=== PATIENT | female | born 1950 | race Caucasian/White ===

== ENCOUNTER 2016-02-17 06:30 | Inpatient (IN) | payer SELFPAY ==
[~2016-02-17] VITALS: Ht 157.5 cm; Wt 84.6 kg
[2016-02-17 07:02] LABS: BASOPHILS 0.1 % (0.0-2.0); EOSINOPHILS 1.2 % (0-7); HEMATOCRIT 36.2 % (36.0-48.0); HEMOGLOBIN 11.2 g/dL (12-16); IMMATURE GRANULOCYTES 0.3 % (0-5); LYMPHOCYTES 32.8 % (15-50); MCH 27.7 pg (26.0-34.0); MCHC 30.9 g/dL (31.0-37.0); MCV 89.6 fL (80.0-100.0); MEAN PLATELET VOLUME 11.1 fL (7.4-10.4); MONOCYTES 18.1 % (2-11); NEUTROPHILS 47.5 % (40-80); RBC 4.04 10x6/uL (4.00-5.40); RDW 15.7 % (11.5-14.5); WBC 7.3 10x3/uL (4.8-10.8)
[2016-02-17 07:07] LABS: PLATELET COUNT 149 10x3/uL (130-400)
[2016-02-17 07:17] LABS: ALBUMIN 2.9 g/dL (3.4-5.0); BILIRUBIN - TOTAL 0.2 mg/dL (0.2-1.3); CALCIUM 9.2 mg/dL (8.5-10.1); CARBON DIOXIDE 35.8 mmol/L (21.0-32.0); CREATININE - SERUM 0.9 mg/dL (0.6-1.3); POTASSIUM - SERUM 4.8 mmol/L (3.5-5.1); PROTEIN - SERUM 6.7 g/dL (6.4-8.2)
[2016-02-17 08:26] LABS: APPEARANCE CLEAR (CLEAR); BILIRUBIN NEGATIVE (NEGATIVE); COLOR YELLOW (YELLOW); GLUCOSE NEGATIVE (NEGATIVE); KETONE NEGATIVE (NEGATIVE); LEUKOCYTE ESTERASE NEGATIVE (NEGATIVE); NITRITE NEGATIVE (NEGATIVE); PROTEIN NEGATIVE (NEGATIVE); UROBILINOGEN NORMAL (NORMAL)
[2016-02-17 08:38] LABS: UDS - AMPHET NEGATIVE QUAL (NEGATIVE); UDS - BARB NEGATIVE QUAL (NEGATIVE); UDS - BENZO NEGATIVE QUAL (NEGATIVE); UDS - COCAINE NEGATIVE QUAL (NEGATIVE); UDS - METH NEGATIVE QUAL (NEGATIVE); UDS - OPIATE NEGATIVE QUAL (NEGATIVE); UDS - PCP NEGATIVE QUAL (NEGATIVE); UDS - THC NEGATIVE QUAL (NEGATIVE)
--- NOTE | 2016-02-17 12:58 | NUR ---
REC'D PT FROM ER VIA BED. PT SLEEPY BUT EASILY AROUSED. A/O X3. ORIENTED PT TO ROOM. PT REQUEST A DIET COKE AND SOMETHING TO EAT. O2 AT 3LITERS VIA NC. SOB NOTED WITH CRAKLES HEARD BILATERALLY. CALL LIGHT WITH IN REACH. BED ALARM ON. WILL CONT. TO MONITOR.
--- NOTE | 2016-02-17 13:01 | NUR ---
NEW ADMIT FROM ER. SHEYINTED TO ROOM. CALL LIGHT IN REACH. WILL CONT. PLAN OF CARE.
[2016-02-17] MEDS ORDERED: GLUCOPHAGE850 MG PO (13:06)
[2016-02-17] MEDS ORDERED: KLONOPIN1 MG PO (13:07)
[2016-02-17] MEDS ORDERED: ZYPREXA20 MG PO (13:07)
[2016-02-17] MEDS ORDERED: ZYPREXA10 MG PO (13:08)
[2016-02-17] MEDS ORDERED: SYNTHROID150 MCG PO (13:08)
[2016-02-17] MEDS ORDERED: BENZTROPINE ME0.5 MG PO (13:09)
[2016-02-17] MEDS ORDERED: DEPAKOTE500 MG PO (13:09)
[2016-02-17] MEDS ORDERED: VITAMIN D5000 UNIT PO (13:10)
[2016-02-17] MEDS ORDERED: MIRALAX17 GM PO (13:10)
[2016-02-17 13:15] VITALS: BP 110/42; BMI 45.8
[2016-02-17] MEDS ORDERED: FISH OIL 1,0001 CA1 PO (13:15)
[2016-02-17] MEDS ORDERED: COLACE100 MG PO (13:15)
[2016-02-17] MEDS ORDERED: MUCINEX600 MG PO (13:16)
[2016-02-17] MEDS ORDERED: PROVENTIL HFA6.7 GM INH (13:17)
[2016-02-17] MEDS ORDERED: NOVOLOG100 U/M1 (13:27)
--- NOTE | 2016-02-17 13:39 | NUR ---
UNABLE TO PUT PT ON CHIEF SOLUTION ARCHITECT AT THIS TIME. WAS TOLD BY FACILITY TECHNICIAN THAT THEY ARE OUT OF MONITORS AT THE MOMENT.
[2016-02-17 16:28] VITALS: BP 142/57
--- NOTE | 2016-02-17 18:24 | NUR ---
PT SLEEPING. APPEARS COMFORTABLE. RESP EVEN AND UNLABORED. CALL LIGHT WITH IN REACH. BED ALARM ON.
[2016-02-17 20:50] VITALS: BP 160/82
--- NOTE | 2016-02-17 21:51 | NUR ---
PT AWAKE, ALERT, ORIENTED, DENIES ANY NEEDS. CONTINUE TO MONITOR CLOSELY. BED LOW, CALL LIGHT IN REACH, SIDE RAILS X 2, HOB 20 DEGREES, BED ALARM ON.
[2016-02-18 02:50] VITALS: BP 172/70
[2016-02-18 05:22] VITALS: BP 168/79
[2016-02-18 05:42] LABS: BASOPHILS 0.2 % (0.0-2.0); EOSINOPHILS 0.8 % (0-7); HEMATOCRIT 35.9 % (36.0-48.0); HEMOGLOBIN 10.9 g/dL (12-16); IMMATURE GRANULOCYTES 0.3 % (0-5); LYMPHOCYTES 34.9 % (15-50); MCH 27.5 pg (26.0-34.0); MCHC 30.4 g/dL (31.0-37.0); MCV 90.4 fL (80.0-100.0); MEAN PLATELET VOLUME 11.7 fL (7.4-10.4); MONOCYTES 18.1 % (2-11); NEUTROPHILS 45.7 % (40-80); PLATELET COUNT 165 10x3/uL (130-400); RBC 3.97 10x6/uL (4.00-5.40); RDW 15.4 % (11.5-14.5); WBC 6.5 10x3/uL (4.8-10.8)
--- NOTE | 2016-02-18 05:49 | NUR ---
PT PULLED HER IV OUT OF HER LEFT HAND WHILE TRANSFERRING TO BEDSIDE COMMODE. PT HAS REFUSED TO BE RESITED, PT HAS ALSO REFUSED TELEMETRY AND SCD'S. PT IS LETHARGIC, BUT EASILY ROUSABLE TO VERBAL STIMULI. PT AGREES AT THIS TIME TO WEAR HER O2 VIA NC. CONTINUE TO MONITOR CLOSELY. BED LOW, CALL LIGHT IN REACH, SIDE RAILS X 2, BED ALARM ON.
[2016-02-18 06:00] LABS: CALC OSMOLALITY 283 mosm/kg (275-300); CALCIUM 8.8 mg/dL (8.5-10.1); CARBON DIOXIDE 34.7 mmol/L (21.0-32.0); CHLORIDE - SERUM 104 mmol/L (98-107); CREATININE - SERUM 0.8 mg/dL (0.6-1.3); GLUCOSE 103 mg/dL (74-106); POTASSIUM - SERUM 4.4 mmol/L (3.5-5.1); SODIUM 143 mmol/L (136-145); UREA NITROGEN 10 mg/dL (7-18); eGFR NON AFRICAN AMERICAN 76 mL/min (90-120)
--- NOTE | 2016-02-18 07:35 | NUR ---
ASSESSMENT DONE. PT SLEEPING. AROUSES TO VOICE. A/O X3. KEEPING EYES CLOSED WHILE SPEAKING WITH NURSE. REQUEST A DIET COKE. NO IV. PT REFUSING TO HAVE IV RESITED. REFUSING TELEMETRY. STATES SHE WANTS "[facility]ON [facility] TO CALL HER SON, AND [facility] CALL LIGHT WITH IN REACH. WILL CONT. TO MONITOR.
[2016-02-18 08:00] VITALS: BP 138/46
--- NOTE | 2016-02-18 09:26 | NUR ---
RESTS IN BED WITH CALL LIGHT IN REACH. RESP UL ON . WILL MONITOR NEEDS.
[2016-02-18 10:54] VITALS: Ht 157.5 cm; Wt 84.6 kg
[2016-02-18 12:19] VITALS: BP 141/52
--- NOTE | 2016-02-18 12:33 | NUR ---
PT C/O SOB. O2 ON AT 3 LITERS VIA NC. O2 SAT 97%. WHEEZING HEARD BILATERALLY. DR. ENZO BRYANT.
--- NOTE | 2016-02-18 12:41 | NUR ---
PT HAS ABDIAS ORDERED PRN. PAGED RT TO ADM.
[2016-02-18 16:00] VITALS: BP 137/67
--- NOTE | 2016-02-18 18:28 | NUR ---
PT SLEEPING. PT SNORING. NO DISTRESS NOTED. CALL LIGHT WITH IN REACH.
--- NOTE | 2016-02-18 19:48 | NUR ---
INITIAL ROUNDS COMPLETED AT 1920 HRS. PT RESTING WITH EYES CLOSED. RESP EVEN AND REGULAR. SR UP X2, CALL LIGHT WITHIN REACH.
[2016-02-18 20:35] VITALS: BP 133/70
--- NOTE | 2016-02-18 23:09 | NUR ---
PM MEDS GIVEN. PT CURRENTLY RESTING WITH EYES CLOSED. RESP EVEN AND REGULAR. SR UP X2, CALL LIGHT WITHIN REACH AND BED ALARM ON.
--- NOTE | 2016-02-19 00:39 | NUR ---
VSS. ASSISTED TO BSC. VOIDED YELLOW URINE. BACK TO BED WITH ASSIST. WILL CONTINUE TO MONITOR. REFUSES TELEMETRY, IV AND SCD'S. BED ALARM ON.
[2016-02-19 00:45] VITALS: BP 133/64
--- NOTE | 2016-02-19 03:02 | NUR ---
ASSISTED PT TO BSC. VOIDED MODERATE AMOUNT OF YELLOW URINE. ASSISTED BACK TO BED. WILL CONTINUE TO MONITOR. BED ALARM ON.
--- NOTE | 2016-02-19 04:17 | NUR ---
VSS. PT DENIES ANY DISCOMFORT. WILL CONTINUE TO MONITOR. SR UP- X1, CALL LIGHT WITHIN REACH AND BED ALARM ON.
[2016-02-19 04:20] VITALS: BP 118/54
--- NOTE | 2016-02-19 06:36 | NUR ---
VSS THROUGHOUT NIGHT. PT DENIED ANY DISCOMFORT. NEEDS MET; WILL CONTINUE TO MONITOR.
[2016-02-19 07:47] VITALS: BP 129/57
--- NOTE | 2016-02-19 07:54 | NUR ---
0705-AM ROUNDING DONE. PATIENT IS ON 3L PER NC WITH DIMINISHED LUNG BASES. BSC IN USE FOR PATIENT. PATIENT IS IN DEPEND BRIEFS AT PRESENT AND WILL NOT LET ME LOOK AT BOTTOM, WILL TRY AGAIN LATER. BED ALARM IS SET. NO IV ACCESS AND WHEN ASKED, PATIENT WILL NOT LET ME SITE IV. WILL CONTINUE TO MONITOR.
[2016-02-19 08:40] LABS: BASOPHILS 0.1 % (0.0-2.0); EOSINOPHILS 1.5 % (0-7); HEMOGLOBIN 12.2 g/dL (12-16); IMMATURE GRANULOCYTES 0.3 % (0-5); LYMPHOCYTES 43.3 % (15-50); MCH 28.2 pg (26.0-34.0); MCHC 31.3 g/dL (31.0-37.0); MCV 90.3 fL (80.0-100.0); MEAN PLATELET VOLUME 11.2 fL (7.4-10.4); MONOCYTES 11.8 % (2-11); PLATELET COUNT 195 10x3/uL (130-400); RBC 4.32 10x6/uL (4.00-5.40); RDW 14.8 % (11.5-14.5); WBC 6.7 10x3/uL (4.8-10.8)
--- NOTE | 2016-02-19 08:49 | NUR ---
24 G SITED TO RIGHT HAND, MADE SALINE LOCK X 2 STICKS.
[2016-02-19 11:50] VITALS: BP 106/46
--- NOTE | 2016-02-19 14:04 | NUR ---
1357-PATIENT GAVE ME PERMISSION TO CALL HER BROTHER ANNIE ([phone]) TO GET HER SON NABIL'S NUMBER. TRIED TO GIVE NABIL A CALL ([phone]) BUT HIS VOICE MAILBOX HAS NOT BEEN ACTIVATED.
[2016-02-19 15:54] VITALS: BP 132/52
--- NOTE | 2016-02-19 18:29 | NUR ---
DR YOUNGER HERE TO SEE PATIENT.
--- NOTE | 2016-02-19 20:09 | NUR ---
INITIAL ROUNDS COMPETED AT 1910 HRS. PT RESTING WITH EYES CLOSED. RESP EVENA ND REGULAR. ASSESSMENT COMPLETED AT 1999 HRS. O2 3LNC. PT ALERT AND ORINETED TO PERSON AND PLACE AND SITUATION. REORIENTED TO TIME. IV TO R HAND SL. LUNGS DIMINISHED IN BASES BILAT. BED ALRM ON. WILL CONTINUE TO MONITRO. SR UP X2, CALL LIGHT WITHIN REACH.
[2016-02-19 20:10] VITALS: BP 94/45
--- NOTE | 2016-02-19 22:06 | NUR ---
PM MEDS GIVEN. PT CURRENTLY RESTING WITH EYES CLOSED. RESP EVEN AND REGULAR. CALL LIGHT WITHIN REACH AND BED ALARM ON.
--- NOTE | 2016-02-20 00:10 | NUR ---
PT RESTING WITH EYES CLOSED. RESP EVEN AND REGULAR. SR UP X2, CALL LIGHT WITHIN REACH AND BED ALARM ON.
[2016-02-20 00:35] VITALS: BP 91/50
--- NOTE | 2016-02-20 02:09 | NUR ---
PT RESTING WITH EYES CLOSED. RESP EVEN ADN REGULAR. SR UP X2, CALL LIGHT WITHIN REACH.
[2016-02-20 04:28] VITALS: BP 102/50
--- NOTE | 2016-02-20 05:21 | NUR ---
VSS THROUGHOUT NGIHT. PT DENIED ANY DISCOMFORT. NEEDS MET;WILL CONTINUE TO MONITOR.
[2016-02-20 08:00] VITALS: BP 137/50
--- NOTE | 2016-02-20 11:19 | NUR ---
PT IS ALERT. ASSESSMENT DONE PER FLOWSHEET. NO CO PAIN AT THIS TIME. WILL CONTINUE TO MONITOR.
[2016-02-20 12:00] VITALS: BP 144/64
--- NOTE | 2016-02-20 12:34 | NUR ---
PT IS ALERT. NO SS OF DISTRESS AT THIS TIME. WILL CONTINUE TO MONITOR. PT IS EAGERLY AWAITING TO GO HOME AND HAS MULTIPLY ASKED STAFF IF THE DR HAS COME HOME AND SAID SHE COULD GO HOME.
[2016-02-20 14:32] VITALS: BP 116/72
[2016-02-20] MEDS ORDERED: IPRAT-ALBUT 0.5-3 ML UPD (18:19)
[2016-02-20] MEDS ORDERED: MEDROL DOSE PACK4 MG PO (18:22)
[2016-02-20 20:00] VITALS: BP 101/63
--- NOTE | 2016-02-20 20:25 | NUR ---
5917 DAVIS RECEIVED MSG FROM NURSING MAINTENANCE AND REPAIR WORKER TO CALL [facility] KNOCKER MD HAD WRITTEN ORDERS TO DISCHARGE PATIENT BACK TO [facility]. [facility] ADVISED THEY DID NOT HAVE TRANSPORTATION AVAILABLE. [facility]KE KNOCKER FAXED DISCHARGE SUMMARY. CM WILL FAX CLINICAL UPDATE.
--- NOTE | 2016-02-20 20:34 | NUR ---
DAVIS SPOKE WITH BRIANNE AT [facility] REGARDING DISCHARGE. SHE DOES NOT KNOW WHAT TYPE OF BED INTO WHICH THE PATIENT WILL BE ADMITTED. CB IN THE AM. THEY HAVE OBTAINED A RADIO EQUIPMENT INSTALLER FOR TRANSPORTATION. DAVIS SPOKE W/ RADIO SCRIPT WRITER. THE PATIENT AND HER PAPERWORK ARE READY FOR DISCHARGE.
--- NOTE | 2016-02-20 20:55 | NUR ---
[facility] FACILITY AT BEDSIDE TO PICK PT UP. PAPER WORK SIGNED. WHEELED OUT BY FACILITY EMPLOYEES.
== END 2016-02-20 22:18 | DRG 190 ==
LOC: D.ER 06:30 → D.M2 08:31
PROVIDERS: Emergency Medicine; ADMIT Family Medicine
DX: J44.1 Chronic obstructive pulmonary disease with (acute) exacerbation (principal); J18.9 Pneumonia, unspecified organism; J96.00 Acute respiratory failure, unspecified whether with hypoxia or hypercapnia; E11.9 Type 2 diabetes mellitus without complications; F25.9 Schizoaffective disorder, unspecified; K21.9 Gastro-esophageal reflux disease without esophagitis; E78.5 Hyperlipidemia, unspecified; D64.9 Anemia, unspecified; E03.9 Hypothyroidism, unspecified; E55.9 Vitamin D deficiency, unspecified; K59.00 Constipation, unspecified; Z72.0 Tobacco use

== ENCOUNTER → 2016-04-18 19:23 | Outpatient (CLI) | payer SELFPAY ==
[2016-02-18 10:54] VITALS: BMI 34.8
[~2016-04-18 19:23] MED LIST: BENZTROPINE ME0.5 MG PO; COLACE100 MG PO; DEPAKOTE500 MG PO; FISH OIL 1,0001 CA1 PO; GLUCOPHAGE850 MG PO; IPRAT-ALBUT 0.5-3 ML UPD; KLONOPIN1 MG PO; MEDROL DOSE PACK4 MG PO; MIRALAX17 GM PO; MUCINEX600 MG PO; NOVOLOG100 U/M1; PROVENTIL HFA6.7 GM INH; SYNTHROID150 MCG PO; VITAMIN D5000 UNIT PO; ZYPREXA10 MG PO; ZYPREXA20 MG PO
== END | disposition home or self-care (01) ==
LOC: D.SLEEP 19:23
DX: G47.34 Idiopathic sleep related nonobstructive alveolar hypoventilation (principal); R35.1 Nocturia

== ENCOUNTER 2016-06-13 22:50 | Inpatient (IN) | payer MEDICAID ==
[~2016-06-13] VITALS: Ht 157.5 cm; Wt 97.1 kg
[~2016-06-13 22:50] MED LIST changes: -DEPAKOTE ER500 MG PO; -FUROSEMIDE20 MG PO; -NOVOLOG100 U/M1 SC; -POTASSIUM CHLOR8 ME1 PO
[2016-06-14] MEDS ORDERED: FUROSEMIDE20 MG PO (00:52)
[2016-06-14] MEDS ORDERED: POTASSIUM CHLOR8 ME1 PO (00:53)
[2016-06-14] MEDS ORDERED: MUCINEX600 MG PO (01:10)
[2016-06-14] MEDS ORDERED: DEPAKOTE ER500 MG PO (01:14)
[2016-06-14] MEDS ORDERED: BENZTROPINE ME0.5 MG PO (01:15)
[2016-06-14 03:53] VITALS: BMI 39.2
[2016-06-14] MEDS ORDERED: NOVOLOG100 U/M1 SC (04:38)
--- NOTE | 2016-06-14 05:46 | NUR ---
NEW ADMIT FROM EMERGENCY DEPARTMENT TO DOCTOR PAMELA. PATIENT HAD BECOME HYPER VERBAL AT [facility]. YELLING OUT. UNABLE TO REDIRECT AND WAS TRANSPORTED [facility]. UPON ARRIVAL TO HALF-WAY PATIENT WAS CALM AND COOPERATIVE WITH CARE AND ASSESSMENTS. SIGNING CONSENTS FOR ADMISSION TO HALF-WAY. LEFT MESSAGE ON PATIENTS SONS VOICE MAIL. PATIENT CONTINUES TO GET LOUD TALKING AT TIMES BUT REDIRECTS WITH EASE.
[2016-06-14 05:56] LABS: HEMOGLOBIN A1C 7.4 % (4.8-6.0)
[2016-06-14 06:05] LABS: CHOL - HDL RATIO 3.4 ratio (2.3-4.1); LDL-HDL RATIO 2.1 ratio (1.5-3.5); THYROID STIMULATING HORMONE 2.98 uIU/mL (0.36-3.74); VALPROIC ACID (DEPAKOTE) 62.9 ug/mL (50.0-100.0)
[2016-06-14 08:43] VITALS: BP 114/77
[2016-06-14 10:56] VITALS: Ht 157.5 cm; Wt 97.1 kg
--- NOTE | 2016-06-14 12:00 | NUR ---
B) Sitting at dining room table, alert, quiet at this time, however was quite hyper-verbal this morning, compliant with meds, cooperative with staff, delusional, telling stories that exceed the truth. I) Meds admin, music/relaxation therapy provided per director new product. R) Mikayla meds well without s/s adverse reaction. P) Cont plan of care including medications and group therapy, re-direct as necessary.
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
--- NOTE | 2016-06-14 18:35 | NUR ---
Cont to sit in recliner in dayroom, hyperverbal, rambling speech. Stated that Sunday is Mother's day, the and is the . Cont to ramble from topic to topic.
[2016-06-14 19:24] VITALS: BP 135/79
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
[2016-06-15 06:15] LABS: RAPID PLASMA REAGIN Non Reactive (Non Reactive)
[2016-06-15 09:20] LABS: FOLATE (FOLIC ACID) - SERUM 19.3 ng/mL (>3.0)
[2016-06-15 12:35] VITALS: BP 134/71
--- NOTE | 2016-06-15 13:34 | NUR ---
PT CONTINUES TO BE HYPERVERBAL AND MAKING RANDOM DELUSIONAL STATEMENTS. SOME GRANDIOSE STATEMENTS MADE WELL. REORIENTED TO ENVIRONMENT NEEDED. LIMITED INSIGHT INTO REALITY BASED THINKING. EDUCATED ON APPROPRIATE BEHAVIOR AND REALITY DONE. FALL PRECAUTIONS MAINTAINED. MEDICATIONS GIVEN ORDERED. NO AGGRESSION NOTED. WILL CONTINUE TO MONITOR AND CONTINUE WITH PLAN OF CARE.
--- NOTE | 2016-06-15 13:41 | PSY ---
PATIENT NAME:TIMOTHY ROCKWELL MEDICAL RECORD: [id number] : 52 LOCATION:[facility] ADMISSION DATE: 06/13/16 ACCOUNT: [id number] PSYCHIATRIC EVALUATION DATE OF EVALUATION: 06/14/16 Psychiatric Evaluation IDENTIFYING DATA: The patient is 66 years old and she is admitted to the hospital on a voluntary basis. CHIEF COMPLAINT: Psychosis. HISTORY OF PRESENT ILLNESS: The patient lives in a local custodial. She has not been there very long. I am not entirely clear from the circumstances that brought her to this custodial, but the patient clearly has significant behavior problems. She is manic, hyperverbal, hyper-restorationist and delusional. She is accusing the staff there of wanting to steal from her so that they could buy crack cocaine. She is very adamant that everyone at the custodial is taking crack cocaine and she want something done about it. She denies that she would seek to harm herself or others. She denies auditory and visual hallucinations. She denies psychotic symptoms, but she is clearly having active delusional thought processes. PAST MEDICAL HISTORY: Significant for diabetes, hypertension and hypothyroidism. PAST PSYCHIATRIC HISTORY: Significant for long-term mental illness. The patient has a long established and in my view accurate diagnosis of bipolar disorder. She had her first hospitalization while she was still in high school. She has been institutionalized much of her adult life and has spent long periods that both the [facility] and [facility]. In addition to this, she has been in group home residential care at [facility]. She has had many hospitalizations and she says that she has never had psychotic symptoms or attempted to harm herself, but obviously any history she is giving me is of questionable reliability unless independently confirmed. FAMILY HISTORY: Significant for Muhlenberg's chorea which killed one of her sons. She denies a family history of mental illness which is questionably reliable. SOCIAL HISTORY: The patient says she has been and twice. She says she had 2 children, one of whom of Arjun's disease. The other she says is doing well is a middle-aged and retired from the . She denies any history of drug or alcohol abuse. All of this may be correct it is just that given her illness and current condition, just about anything she says is of questionable reliability unless it is independently verified. MENTAL STATUS EXAMINATION: The patient is awake, alert and oriented to person, place and somewhat to time and situation. Her mood is euphoric. Her affect is expansive. Memory, concentration and abstraction abilities are moderately impaired and she denies that she would seek to harm herself or others. She denies auditory and visual hallucinations, but clearly displays delusional thought content and processes. ASSETS: Supportive family members. LIABILITIES: Limited insight. DIAGNOSTIC IMPRESSION: AXIS I: Bipolar disorder, manic. AXIS II: None. AXIS III: Diabetes, hypertension, hypothyroidism. AXIS IV: Moderate stressors. AXIS V: Global assessment of functioning is 35. PLAN: At this time, the patient is admitted to the hospital secondary to manic symptoms associated with chronic mental illness. She will be comprehensively evaluated and treated with both mood stabilizing and memory enhancing medications. Her long-term prognosis is guarded. TRANSINT:[id number] Voice Confirmation ID: [id number] DOCUMENT ID: [id number] ARMIN SANTIAGO MD at 1341 CC: [id number] DICTATION DATE: 06/14/16 1514 COLLECTIONS ATTORNEY: 06/14/16 1808 ADM IN [facility] [address] [place] [address]
--- NOTE | 2016-06-15 16:50 | NUR ---
PATIENT IS SITTING IN THE DAY ROOM. SHE HAS ASKED FOR A SOFT DRINK, BUT SHE IS LIMITED AND Mannie FERMIN EXPLAINED THIS TO HER. PATIENT VERBALIZED UNDERSTANDING.
[2016-06-15 19:24] VITALS: BP 154/79
--- NOTE | 2016-06-15 21:34 | NUR ---
Patient in hallway, doesn't want to go to bed. She is shaking and saying that a "black man is going to come and scalp her, that she heard him talking through the wall. Call the police, 411!" Patient started yelling and shaking. Patient was reoriented that was told she was in the hospital, a secured unit. She just sat and glared at the nurse and started yelling at the security gaurd when he came through to call the police. Patient was eventually redirected to her room and was given .5 mg of Ativan po for anxiety. Continue to monitor,
--- NOTE | 2016-06-16 02:09 | NUR ---
Patient in bathroom, saying "I'm going to call the police, I'm leaving now! I'll make the doctor let me out. You'll see, sister!" Patient is extremely agitated and angry. She came out into the hallway, and was talking very loudly. She sat in a chair next to other patient rooms, when she was asked to move, she said I'm not moving. Patient was reassured that she was safe. However, she kept repeating that she would call the police. She also accused staff of talking about her. Continue to monitor
--- NOTE | 2016-06-16 11:14 | NUR ---
ORIENTED TO PERSON, PLACE, AND TIME. REORIENTED TO REASON WHY SHE WAS AT THE HOSPITAL. PT CONTINUES TO MAKE RANDOM DELUSIONAL STATEMENTS. REDIRECTED NEEDED BACK TO REALITY BASED THINKING. MEDICATIONS GIVEN ORDERED. NO AGGRESSION NOTED. PT CONTINUES TO BE HYPERVERBAL BUT CAN BE REDIRECTED MORE EASILY TODAY. BLE EDEMA NOTED SO PT IS ELEVATING HER FEET AT THIS TIME. DR. REYES AWARE OF EDEMA. FALL PRECAUTIONS MAINTAINED. WILL CONTINUE TO MONITOR AND CONTINUE WITH PLAN OF CARE.
[2016-06-16 11:19] VITALS: BP 137/74
--- NOTE | 2016-06-16 11:53 | PN ---
PATIENT:TIMOTHY ROCKWELL MEDICAL RECORD: [id number] LOCATION:[facility] ADMISSION DATE: 06/13/16 PROGRESS NOTE DATE OF SERVICE: 06/15/2016 SUBJECTIVE: The patient's case was discussed with staff. She has no new complaint. OBJECTIVE: The patient is in good behavioral control with limited insight about her condition. She is tolerating her medications reasonably well. She has limited insight about her situation, but is still very delusional. She tells me she is pleased to announce that the crackhead, who were stealing from her have now been removed from the [facility]. When asked how she knows that, she says, Mart told her it was so. ASSESSMENT: No change in diagnoses. PLAN: The patient is going to be started on lithium as a second mood stabilizer. Depending upon her ability to tolerate this and its clinical effects that may elect to keep her on both Depakote and lithium or just one of the 2 medications. At this point, I would anticipate she is still going to require another week of hospitalization to adequately address these bizarre delusions. TRANSINT:[id number] Voice Confirmation ID: [id number] DOCUMENT ID: [id number] ARMIN SANTIAGO MD at 1153 CC: [id number] DICTATION DATE: 06/15/16 1351 EPITAXIAL REACTOR OPERATOR: 06/15/16 2312 ADM IN [facility] [id number] [place] [address]
--- NOTE | 2016-06-16 14:55 | NUR ---
Nutrition follow-up: Diet: Consistent CHO PO intake ~95% of meals Labs reviewed RDN following.
--- NOTE | 2016-06-16 17:55 | NUR ---
PT CONTINUES TO MAKE RANDOM DELUSIONAL STATEMENTS. PT NOW TALKING OUT LOUD TO UNSEEN OTHERS. PT ALSO TEARFUL AT TIMES CALLING OUT "MAMA". ATTEMPTS AT REDIRECTION HAS CAUSED THE PT TO BECOME AGITATED.
[2016-06-16 19:16] VITALS: BP 141/82
--- NOTE | 2016-06-17 01:11 | NUR ---
B) Recieved francisco in hallway in front of nurses station, alert and oriented X 3, recognized this nurse from when I attended her 10 months ago at her assisted, hyperverbal, delusional AEB talking to God and the president at times, I) Administered perscribed medications, PRN Ativan 0.5 mg PO given for anxiety at 20:00, monitored for safety, R) Medication compliant, friendly and pleasant with staff, P) Continue plan of care, continue to monitor.
--- NOTE | 2016-06-17 07:45 | NUR ---
B) PATIENT TELLING STAFF THAT SHE IS AND GOING TO HAVE A BABY. PATIENT THEN GOES BACK TO BED. PATIENT IS ABLE TO AMBULATE, BUT SHE HAS A WIDE STRADDLE TYPE GAIT AND LOOKS UNSTEADY AT TIMES. I) PROVIDE PRESCRIBED MEDS AND REDIRECT TO REALITY VS NONREALITY. R) PATIENT LAYING IN BED. P) CONTINUE PLAN OF CARE.
--- NOTE | 2016-06-17 08:53 | NUR ---
PATIENT IS LAYING IN BED, DIDN'T EAT MUCH, LAYING BACK IN BED.
--- NOTE | 2016-06-17 10:29 | NUR ---
PATIENT IS SITTING IN THE HALLWAY, ROCKING AGAINST THE WALL, SHE HAS MADE STATEMENTS ABOUT EKTA USING THE TELEPHONE TO CALL THE PRESIDENT OF [employer] AND SHE SAYS EKTA HAS A GUN IN HER PURSE. PATIENT IS TALKING TO HER AUDITORY HALLUCINATIONS. TELLING THEM WHERE SHE IS SITTING.
[2016-06-17 10:45] VITALS: BP 110/65
--- NOTE | 2016-06-17 11:00 | NUR ---
PATIENT WALKED OVER TO MALE PATIENT IN A W/C AND STARTED WHEELING HIM. ASKED HER WHAT SHE WAS DOING. SHE SAID "I'M TAKING GALD[place] FOR A SPIN" EXPLAINED TO HER THAT SHE CAN NOT DO THAT, HE IS HAPPY WHERE IS AND THAT HE IS ABLE TO SELF PROPEL IF HE WANTS TO GO ANYWHERE. SHE LOOKED AT [facility] AND SAID "OK, I WON'T NEVER DO IT AGAIN".
--- NOTE | 2016-06-17 11:17 | PN ---
PATIENT:TIMOTHY ROCKWELL MEDICAL RECORD: [id number] LOCATION:[facility] ADMISSION DATE: 06/13/16 PROGRESS NOTE DATE OF SERVICE: 06/16/2016 SUBJECTIVE: The patient's case was discussed with staff. She has no new complaint. OBJECTIVE: The patient is much calmer and more focused. She still remains delusional, but she is not making any threats. ASSESSMENT: No change in diagnoses. PLAN: Current medicines have been reviewed and will be maintained. Her long-term prognosis is guarded. TRANSINT:[id number] Voice Confirmation ID: [id number] DOCUMENT ID: [id number] ARMIN SANTIAGO MD at 1117 CC: [id number] DICTATION DATE: 06/16/16 1203 PROGRAM RESEARCH SPECIALIST: 06/16/16 2310 ADM IN [facility] [address] [place] [address]
--- NOTE | 2016-06-17 12:30 | NUR ---
PATIENT DID NOT EAT MUCH OF HER LUNCH, TWO BITES MAYBE. SHE HAS BEEN CARRYING AROUND HER BAG AND STANDING BY THE DOOR IF SHE IS NOT IN HER ROOM OR SITTING BY THE DESK, SHE HAS KNOCKED ON THE DOOR, BUT SHE HAS NOT TRIED TO PUSH IT OPEN.
--- NOTE | 2016-06-17 15:30 | NUR ---
PATIENT SITTING IN [address] ROCKING, TALKING AND LISTENING TO HER HALLUCINATIONS. SHE ALSO BEGAN TO MIMIC WHEN THE NURSE WOULD CLEAR HER THROAT OR COUGH.
--- NOTE | 2016-06-17 17:36 | NUR ---
PATIENT REFUSED DINNER, SHE HAS HER BAG PACKED AND SHE IS READY TO GOOUT THE DOOR. SHE HAS KNOCKED ON THE DOOR AND SHE HAS MADE STATEMENTS THAT WE BETTER NOT HURT HER SON. PATIENT IS COMPLIANT TO TAKE HER MEDS.
--- NOTE | 2016-06-17 17:38 | NUR ---
OFFERED PATIENT A SANDWICH, SHE SAID SHE DID NOT WANT ANYTHING.
--- NOTE | 2016-06-17 18:15 | NUR ---
WHEN AUTO TIRE RECAPPER WALKED THROUGH PATIENT SAID "HELP ME, THEY'RE TRYING TO KILL ME."THE AUTO TIRE RECAPPER REASSURED HER THAT "NO, THEY DON'T DO THAT HERE" EXPLAINED THAT WE ARE TRYING TO HELP HER NOT HARM HER. PATIENT IS TRYING THE DOORS NOW. DID PUT UP PRECAUTIONARY SIGNS ON THE OUTSIDE SO OTHERS CAN BE AWARE. PATIENT ASKED "WHERE'S YOUR AND CHILDREN?" TOLD HER THEY WERE AT HOME WAITING ON ME. SHE SAID "WELL, I WOULDN'T BE SO SURE OF THAT", ASKED HER TO SAY AGAIN. SHE SMIRKED AND SAID "I DIDN'T SAY ANYTHING". PATIENT IS ATTENTION SEEKING AND TRYING TO GET A REACTION OF SOME KIND FROM THIS NURSE. SHE ALSO MENTIONED THAT I WAS HERE LAST NIGHT WITH ELENA AND SUGGESTED THAT HE WAS MY BOYFRIEND AND WE WERE HAVING AN AFFAIR. EXPLAINED TO HER THAT "I WAS NOT HERE LAST NIGHT, I WORK DAYS, NOT NIGHTS" AGAIN PATIENT TRYING TO FIND BUTTONS TO PUSH. NO OTHER RESPONSE FROM THIS NURSE. EXPLAINED TO HER THAT THIS MAY BE MY FIRST TIME WITH HER, BUT THAT I WAS AWARE OF THIS KIND OF ENVIRONMENT AND EVERYTHING IS OK.
--- NOTE | 2016-06-17 18:28 | NUR ---
PATIENT JUST CAME TO THE DESK AND SAID "MY ALREADY CALLED YOU AND SAID I CAN GO, YOU'RE TRYING TO KILL ME BOTH OF YOU AND YOUR FATHER AND MOTHER TOO, SHE SAYS YOU THINK YOU'RE GONNA GET $300 MILLION DOLLARS" PATIENT BELIEVES MALE PATIENT AND FEMALE PATIENT ARE MY PARENTS AND ALL OF US ARE TRYING TO KILL HER.
--- NOTE | 2016-06-17 18:33 | NUR ---
PATIENT IS BIZARRE SHE SAYS "THE MAN IS THE TARIK AND THE WOMAN IS BLACK ANDERSON AND YA'LL ARE WORKING FOR [employer]."
[2016-06-17 19:52] VITALS: BP 138/71
--- NOTE | 2016-06-17 21:31 | NUR ---
B) Recieved patient in the hallway alert and oriented X 3, confused and delusional, accussing staff of trying to kill her, wild stories and hyperverbal, attention seeking, I) Administered perscribed medications, monitored for falls and safety, redirected and closely monitored for elopment, PRN Ativan 0.5 mg PO at 20:00 for anxiety R) Medication compliant, restless and asking constant questions and making bizarre statements P) Continue plan of care.
[2016-06-18 07:00] VITALS: BP 100/55
--- NOTE | 2016-06-18 11:04 | NUR ---
Patient in bed, hallucinating. Yelling out, "I love you" to no one. She is terse in speech, flat affect when asked about her needs. Appears angry. Continue to monitor, continue plan of care.
--- NOTE | 2016-06-18 16:39 | NUR ---
Patient's son came to visit her today, Mother's Day. When she found out he was coming, she sat by the window looking for him. He brought his son and visited for 30 minutes. Patient's demeanor has completely changed for the time being. She is polite and pleasant. She said it was the best Mother's Day she's ever had and keeps looking at her card. Patients good behavior has been encouraged. No hallucinations noted. Continue to monitor.
--- NOTE | 2016-06-18 20:05 | NUR ---
RECEIVED IN DAYROO. SITTING IN RECLINING CHAIR WITH STAFF AND PEERS AROUND. HYPERVERBAL AT TIMES. ALERT AND ORIENTED. CALM AND COOPERATIVE WITH CARE AND ASSESSMENTS. REDIRECT NEEDED. CONTINUES TO SIT QUIETLY IN RECLINER. CONTINUE PLAN OF CARE
[2016-06-18 21:00] VITALS: BP 139/54
--- NOTE | 2016-06-19 08:45 | NUR ---
B.) Alert and oriented times three, calm and pleasant. I.) Administer medications and monitor compliance. Monitor for any hallucinations or inappropriate behavior. Redirect and reorient as need. Monitor safety. R.) Compliant with medications, calm and cooperative with care, no yelling out this am, speaks in normal tone of voice and is not hyperverbal at this time. States reason for being here " I kept calling 911 and yelling" No behaivor at this time. P.) Continue plan of care.
[2016-06-19 10:11] VITALS: BP 115/57
--- NOTE | 2016-06-19 15:51 | NUR ---
Has sat in hallway intermittently today, socializing with staff. Pleasant with conversation but is intrusive at times.
--- NOTE | 2016-06-19 16:00 | NUR ---
Sitting in hallway rocking back in forth in chair, hyperverbal talking out loud about random subjects, yelled out "Mart has healed me and Tomer ( another patient on unit.) of sugar diabetes, we are healed!" redirected to lower tone of voice, cooperative with redirection.
--- NOTE | 2016-06-19 18:15 | NUR ---
Sitting in chair rocking back and forth, has bag of clothes in hand and yells out, staring into hallway, delusional " I'm ready to go, Malou if you drop the charges will you shot me!, are you going to shot me?" Does not acknowledge nurse talking to her attempting to refocus to reality. Closes eyes quiets down and continues to rock back and forth with bags in her hand. Elopment precautions in place, staff at desk monitoring patient.
--- NOTE | 2016-06-19 18:29 | NUR ---
Having visual hallucinations, looking down hallway yelling out " Jaylon Sharma listen to your daddy!"
[2016-06-19 19:15] VITALS: BP 181/92
--- NOTE | 2016-06-19 19:50 | NUR ---
RECEIVED IN HALLWAY OUTSIDE OF NURSES STATION. VERY CONFUSED. TALKING ABOUT UNKNOWN THINGS. LAUGHING FOR NO REASON. TALKING TO FAMILY, CALM AND COOPERATIVE WITH CARE AND ASSESSMENT. CONTINUES TO SIT IN DE LUNA. CONTINUE PLAN OF CARE
[2016-06-20 08:01] VITALS: BP 106/62
--- NOTE | 2016-06-20 09:05 | NUR ---
B.) Received this am, alert and oriented to name and place, states reason for being here as " Toan called the police on me." Agitated this am with refusal to get out of bed, refused breakfast and medications. Delusional stating her medication she recieved early this am were laced with cyanide. " Ra put cyanide in my Synthroid." Attempts to refocus patient to reality, by teaching each medication as it was scanned and opened, gladys refused stating " let my bed back down so I can sleep." I.) Redirect for inappropriate behavior, Refocus to reality versus nonreality for any delusions and/or hallucinations. Monitor safety. Elopement precautions in place. R.) Noncompliant with medications, unable to refocus to reality, when lance entered her room she also told her about medication with cyanide in it, and at that time said she would go ahead and take her medications for this am, but when nurse return with medications, she yet refused them. Breakfast tray left at bedside, did not consume food. No hallucinations noted. Patient did lay in bed and had urinary incontinence instead of getting up to bathroom, yelled out she was wet and needed changing, patient normal routine is that she is independent to bathroom, and had been observed doing so this am until this episode. Elopement precautions in place, patient in view of nurses station. Safety maintained. P.) Continue plan of care.
--- NOTE | 2016-06-20 09:09 | NUR ---
Woke up for medication administration, patient states " I'm refusing my medications because Ra laced my medications this morning with cyanide, with cyanide! I'm not taking anything!." refused 0900 medications and laid back down also refusing breakfast.
--- NOTE | 2016-06-20 12:03 | NUR ---
Cooperative with noon medication without any delusions, even thanked nurse for giving it to her.
--- NOTE | 2016-06-20 12:20 | NUR ---
Out of bed sitting up eating lunch, calm and cooperative. No inappropriate behavior.
[2016-06-20 19:30] VITALS: BP 132/73
--- NOTE | 2016-06-20 19:42 | NUR ---
RECEIVED IN DAYROOM. SITTING IN RECLINER. STATED THAT SHE WAS SORRY FOR THINGS SHE SAID TODAY. STATING THAT SHE KNOWS THAT THEY WERE NOT TRUE NOW. NOT YELLING OUT AT THIS TIME. CALM AND COOPERATIVE WITH CARE AND ASSESSMENT. ENCOURAGE TO EXPRESS NEEDS. CONTINUE TO SIT IN CHAIR QUIETLY. NOT YELLING OUT. CONTINUE PLAN OF CARE
[2016-06-21 08:54] VITALS: BP 104/53
--- NOTE | 2016-06-21 12:42 | PN ---
PATIENT:TIMOTHY ROCKWELL MEDICAL RECORD: [id number] LOCATION:[facility] ADMISSION DATE: 06/13/16 PROGRESS NOTE DATE OF SERVICE: 06/19/2016 SUBJECTIVE: The patient's case was discussed with staff. She has no new complaint. OBJECTIVE: The patient denies intent to harm herself or others. She does tolerate her medicines well. She is disorganized and delusional. She is hyperverbal. ASSESSMENT: No change in diagnoses. PLAN: The patient will have her level of both lithium and Depakote checked. If either of those are subtherapeutic, I will make appropriate adjustments. If both are therapeutic, I will change her antipsychotic medication. TRANSINT:[id number] Voice Confirmation ID: [id number] DOCUMENT ID: [id number] ARMIN SANTIAGO MD at 1242 CC: [id number] DICTATION DATE: 06/19/16 1353 PATENT ENGINEER: 06/19/16 2153 ADM IN [id number] [place] [address]
--- NOTE | 2016-06-21 12:42 | PN ---
PATIENT:TIMOTHY ROCKWELL MEDICAL RECORD: [id number] LOCATION:[facility] ADMISSION DATE: 06/13/16 PROGRESS NOTE DATE OF SERVICE: 06/20/2016 SUBJECTIVE: The patient's case was discussed with staff. She has no new complaint. OBJECTIVE: The patient denies intent to harm herself or others. She generally tolerates her medicines well. She is very delusional. She refused to take her medicines this morning because she said that the night nurse had put cyanide into them. She also tells me I must discharge her this afternoon because she is a [place] agent and they are going to bomb [place] that unless she can get out and stop them. ASSESSMENT: No change in diagnoses. PLAN: The patient will be started on Prolixin for its antipsychotic affect. She has taken this medicine before. She said it was not very helpful, but much of which she says is unreliable. I think long-term compliance is going to be an issue with her. In addition to this, the patient has a subtherapeutic lithium level and I have doubled the dose of lithium. TRANSINT:[id number] Voice Confirmation ID: [id number] DOCUMENT ID: [id number] ARMIN SANTIAGO MD at 1242 CC: [id number] DICTATION DATE: 06/20/16 1512 INSPECTOR RADAR AND ELECTRONICS: 06/20/16 2244 ADM IN [address] [id number] [place] [address]
[2016-06-21 19:30] VITALS: BP 130/71
--- NOTE | 2016-06-22 02:04 | NUR ---
B) Recieved sitting in the hallway, alert and oriented X 3, calm and cooperative with care and assessment, no wild stories or outburst this shift, I) Administered perscribed medications, monitored for safety, R) Medication compliant, resting now quietly in bed P) Continue plan of care, continue to monitor.
[2016-06-22 10:27] VITALS: BP 122/75
--- NOTE | 2016-06-22 13:38 | PN ---
PATIENT:TIMOTHY ROCKWELL MEDICAL RECORD: [id number] LOCATION:[facility] ADMISSION DATE: 06/13/16 PROGRESS NOTE DATE OF SERVICE: 06/21/2016 SUBJECTIVE: The patient's case was discussed with staff. She has no new complaint. OBJECTIVE: The patient is in good behavioral control with poor insight about her condition. She tolerates her medicines well. ASSESSMENT: No change in diagnoses. PLAN: The patient is very delusional. She has tolerated the initial dose of Prolixin well. I intend to increase the dose in the near future. TRANSINT:[id number] Voice Confirmation ID: [id number] DOCUMENT ID: [id number] ARMIN SANTIAGO MD at 1338 CC: [id number] DICTATION DATE: 06/21/161956 FARM ASSISTANT: 06/22/16 0114 ADM IN [facility] [address] [place] [address]
--- NOTE | 2016-06-22 14:45 | NUR ---
B) PATIENT IS ATTENTION SEEKING, SHE WET HER PANTS IN THE DAY ROOM, WHEN SHE NORMALLY GOES TO THE RESTROOM UNASSISTED AND KNOWS TO GO, SHE WAS NOT SLEEPING. PATIENT AMBULATES INDEPENDENTLY. I) PROVIDE PRESCRIBED MEDS, REDIRECT TO APPROPRIATE BEHAVIOR NEEDED. R) PATIENT HAS BEEN COMPLIANT WITH MEDS, SHE HAS NOT TALKED TO HER UNSEEN VOICES. P) CONTINUE PLAN OF CARE.
--- NOTE | 2016-06-22 14:52 | NUR ---
Nutrition follow-up: Diet: ADA consistent CHO PO intake ~50% of meals Labs reviewed Wt: 160# +BM RDN following.
[2016-06-22 21:18] VITALS: BP 112/63
--- NOTE | 2016-06-23 02:08 | NUR ---
B) Recieved patient in the day room, alert and oriented X 3, calmer today, no behaviors noted, no talking to unseen people, no dramatic praying to God, I) Administered perscribed medications, monitored for safety and falls, R) Medications compliant, resting quietly P0 Continue plan of care.
[2016-06-23 08:25] VITALS: BP 109/54
--- NOTE | 2016-06-23 12:15 | NUR ---
B) PATIENT IS AWAKE AND ALERT SHE HAS BEEN COMPLIANT TODAY WITH MEDS, SHE HAS NOT BEEN ATTENTION SEEKING YESTERDAY. SHE DID WET HER PANTS EARLY THIS MORNING, BUT SHE SAID SHE WILL NOT DO IT AGAIN. PATIENT AMBULATES INDEPENDENTLY. I) PROVIDE PRESCRIBED MEDS. R) PATIENT IS CALM, NO BIZARRE BEHAVIOR NOTED. P) CONTINUE PLAN OF CARE.
[2016-06-23 19:30] VITALS: BP 125/74
--- NOTE | 2016-06-23 20:10 | NUR ---
RECEIVED SITTING IN HALLWAY IN CHAIR. AWAKE AND ALERT. CALM AND COOPERATIVE WITH CARE AND ASSESSMENT. NO UNUSUAL BEHAVIOR NOTED. ADMINISTER PRESCRIBED MEDS, VSS. MEDICATION COMPLIANT. SITTING QUIETLY IN CHAIR WITH PEERS. CONTINUE PLAN OF CARE AND MONIOTOPR FOR SAFETY AND CHANGES.
--- NOTE | 2016-06-23 23:20 | NUR ---
COMPLAINING OF NERVESDOWN HER BACK HURTING, CAN'T STAY IN BED. ATIVAN 0.5 MG PO GIVEN FOR ANXIETY.
[2016-06-24 07:35] VITALS: BP 141/56
--- NOTE | 2016-06-24 19:23 | NUR ---
PT IS RECEIVED IN [place] IN CHAIR. PT IS ALERT AND ORIENTED X3. PT HAS NOT BEEN INTRUSIVE. SHE HAS BEEN VERY CALM AND PLEASANT THIS SHIFT. NO HALLUCIANTIONS OR DELUSION ARE NOTED OR REPORTED. PT IS COOPERATIVE WITH STAFF AND IS COMPLIANT WITH MED'S AND CARE.NO AGGRESSION NOTED. SAFETY MEASURES ARE IMPLEMENTED. WILL CONTINUE WITH PLAN OF CARE AND CONTINUE TO MONITOR.
[2016-06-24 19:30] VITALS: BP 115/86
--- NOTE | 2016-06-25 03:14 | NUR ---
B) Recieved patient in the day room alert and oriented x 3, no hallucinations noted, no behaviors noted, I) Administered perscribed medications, monitored for falls and safety, redirected as needed, R) Medication compliant, cooperative with staff, P) Continue plan of care, continue to monitor.
--- NOTE | 2016-06-25 14:22 | PN ---
PATIENT:TIMOTHY ROCKWELL MEDICAL RECORD: [id number] LOCATION:[facility] ADMISSION DATE: 06/13/16 PROGRESS NOTE DATE OF SERVICE: 06/23/2016 SUBJECTIVE: No new complaint noted. OBJECTIVE: The patient continues to exhibit brittle and labile moods. She has been incontinent from time to time. She does require some redirection because of intrusiveness. On exam, mood is euthymic. Affect is shallow and somewhat inappropriate. Speech tends to be tangential. Content of thought continues to show some delusional ideation. Sensorium shows no change. ASSESSMENT: No change in diagnosis. PLAN: 1. Maintain present medications. 2. Continue supportive therapy. TRANSINT:[id number] Voice Confirmation ID: [id number] DOCUMENT ID: [id number] TODD WHITING III, MD at 1422 CC: [id number] DICTATION DATE: 06/23/16 1138 MACHINE OPERATOR PICKER: 06/23/16 1909 ADM IN [facility] [address] [place] [address]
--- NOTE | 2016-06-25 18:20 | NUR ---
Patient in dayroom, oriented to self, place and time. She is calm and compliant with medication. Patient is not acting delusional or agressive. Continue to monitor
[2016-06-25 19:30] VITALS: BP 123/74
--- NOTE | 2016-06-25 23:00 | NUR ---
RECEIVED IN DAYROOM. SITTING IN CHAIR WITH PEERS BY HER SIDE. SOCIAL AT TIMES. ALERT AND ORIENTED. NO YELLING OUT. CALM AND COOPERATIVE WITH CARE AND ASSESSMENT. ENCOURAGE TO EXPRESS NEEDS. RESTING EYES CLOSED AT THIS TIME. CONTINUE PLAN OF CARE
--- NOTE | 2016-06-26 14:05 | PN ---
PATIENT:TIMOTHY ROCKWELL MEDICAL RECORD: [id number] LOCATION:[facility] ADMISSION DATE: 06/13/16 PROGRESS NOTE DATE OF SERVICE: 06/22/2016 SUBJECTIVE: The patient's case was discussed with staff. She has no new complaint. OBJECTIVE: The patient is in good behavioral control with limited insight about her condition. She tolerates her medications reasonably well and she is continuing to make delusional statements, but with much less emotional intensity attached to them. I suspect she probably has never been free of delusions or at least has not been free of delusions for a long time. I do not think the end result of treatment is a complete absence of thought disorganization. TRANSINT:[id number] Voice Confirmation ID: [id number] DOCUMENT ID: [id number] ARMIN SANTIAGO MD at 1405 CC: [id number] DICTATION DATE: 06/22/16 1349 DRY MIXER: 06/22/16 2996 ADM IN [id number] [place] [address]
--- NOTE | 2016-06-26 18:06 | NUR ---
Patient in dayroom. Oriented to person, place, time and situation. She is non-delusional and no aggression. She has been resting quietly in dayroom. Patient has been polite but somewhat isolated. Continue to monitor
[2016-06-26] MEDS ORDERED: LIPITOR10 MG PO (20:13)
[2016-06-26] MEDS ORDERED: LITHIUM CARBON300 MG PO (20:16)
[2016-06-26] MEDS ORDERED: PROLIXIN 5 MG TA5 MG PO (20:16)
[2016-06-26] MEDS ORDERED: KLONOPIN0.5 MG PO (20:17)
[2016-06-26] MEDS ORDERED: K-TAB10 MEQ PO (20:18)
--- NOTE | 2016-06-26 20:30 | NUR ---
RECEIVED IN HALLWAY STANDING AT NURSES STATION. TALKING ABOUT HER DISCHARGE TOMORROW. IN GOOD SPRITS. STAES SHE IS GOING TO BED SO SHE CAN GET ALOT OF REST TONIGHT FOR HER DISCHARGE. CALM AND COOPERATIVE WITH CARE AND ASSESSMENTS. ENCOURAGE TO EXPRESS NEEDS. CONTINUE PLAN OF CARE
[2016-06-26 23:31] VITALS: BP 133/76
[2016-06-27 10:14] VITALS: BP 144/72
--- NOTE | 2016-06-27 14:45 | PN ---
PATIENT:TIMOTHY ROCKWELL MEDICAL RECORD: [id number] LOCATION:[facility] ADMISSION DATE: 06/13/16 PROGRESS NOTE DATE OF SERVICE: 06/26/2016 SUBJECTIVE: The patient's case was discussed with staff. She has no new complaint. OBJECTIVE: The patient is in good behavioral control with limited insight about her condition. She tolerates her medicines well. She denies that she would seek to harm herself. ASSESSMENT: No change in diagnoses. PLAN: The patient will be given a higher dose of Prolixin 5 mg at bedtime. I am also going to check her lithium and Depakote level. I would anticipate she can reasonably be transitioned out of the hospital soon if this level of improvement is maintained. TRANSINT:[id number] Voice Confirmation ID: [id number] DOCUMENT ID: [id number] ARMIN SANTIAGO MD at 1445 CC: [id number] DICTATION DATE: 06/26/16 1429 VP PATIENT: 06/27/16 0007 ADM IN [id number] [place] [address]
--- NOTE | 2016-06-27 16:26 | NUR ---
Patient was discharged to [facility] via [facility] staff. Valuables collected from safe.
--- NOTE | 2016-06-28 17:47 | PN ---
PATIENT:TIMOTHY ROCKWELL MEDICAL RECORD: [id number] LOCATION:[facility] ADMISSION DATE: 06/13/16 PROGRESS NOTE DATE OF SERVICE: 06/27/2016 SUBJECTIVE: The patient's case was discussed with staff. She has no new complaint. OBJECTIVE: The patient is in good behavioral control with limited insight about her condition. She does tolerate her medicines well. ASSESSMENT: No change in diagnoses. PLAN: Current medicines and therapies have been reviewed and will be maintained. Long-term prognosis is guarded. TRANSINT:[id number] Voice Confirmation ID: [id number] DOCUMENT ID: [id number] ARMIN SANTIAGO MD at 1747 CC: [id number] DICTATION DATE: 06/27/16 1456 WELL SERVICE FLOORPERSON: 06/28/16 0059 DIS IN 06/27/16 [id number] [place] [address]
== END 2016-06-27 10:15 | DRG 885 ==
LOC: D.PSYCH 22:50
PROVIDERS: ADMIT Psychiatry & Neurology Psychiatry
DX: F30.9 Manic episode, unspecified (principal); J44.9 Chronic obstructive pulmonary disease, unspecified; J20.9 Acute bronchitis, unspecified; E11.9 Type 2 diabetes mellitus without complications; I10 Essential (primary) hypertension; E03.9 Hypothyroidism, unspecified; K59.00 Constipation, unspecified; K21.9 Gastro-esophageal reflux disease without esophagitis; E55.9 Vitamin D deficiency, unspecified; D64.9 Anemia, unspecified; F25.9 Schizoaffective disorder, unspecified; E78.5 Hyperlipidemia, unspecified; Z72.0 Tobacco use

== ENCOUNTER → 2016-06-13 | Emergency (ER) | payer MEDICAID ==
[2016-02-18 10:54] VITALS: BMI 34.8
[~2016-06-13] MED LIST changes: +DEPAKOTE ER500 MG PO; +FUROSEMIDE20 MG PO; +NOVOLOG100 U/M1 SC; +POTASSIUM CHLOR8 ME1 PO
[2016-06-13 19:37] LABS: BASOPHILS 0.2 % (0-2); EOSINOPHILS 1.7 % (0-7); HEMATOCRIT 38.2 % (36.0-48.0); HEMOGLOBIN 11.8 g/dL (12-16); IMMATURE GRANULOCYTES 0.5 % (0-5); LYMPHOCYTES 44.4 % (15-50); MCH 28.3 pg (26.0-34.0); MCHC 30.9 g/dL (31.0-37.0); MCV 91.6 fL (80.0-100.0); MEAN PLATELET VOLUME 10.6 fL (7.4-10.4); MONOCYTES 7.3 % (2-11); NEUTROPHILS 45.9 % (40-80); PLATELET COUNT 218 10x3/uL (130-400); RBC 4.17 10x6/uL (4.00-5.40); RDW 14.4 % (11.5-14.5); WBC 8.1 10x3/uL (4.8-10.8)
[2016-06-13 20:17] LABS: ALBUMIN 3.4 g/dL (3.4-5.0); ANION GAP 6.9 mmol/L (8-16); BILIRUBIN - TOTAL 0.13 mg/dL (0.2-1.3); CALCIUM 9.7 mg/dL (8.5-10.1); CARBON DIOXIDE 37.1 mmol/L (21.0-32.0); CREATININE - SERUM 0.9 mg/dL (0.6-1.3); PROTEIN - SERUM 7.3 g/dL (6.4-8.2)
[2016-06-13 20:52] LABS: APPEARANCE CLEAR (CLEAR); BILIRUBIN NEGATIVE (NEGATIVE); COLOR YELLOW (YELLOW); GLUCOSE NEGATIVE (NEGATIVE); KETONE NEGATIVE (NEGATIVE); LEUKOCYTE ESTERASE NEGATIVE (NEGATIVE); NITRITE NEGATIVE (NEGATIVE); PROTEIN NEGATIVE (NEGATIVE); UROBILINOGEN NORMAL (NORMAL)
[2016-06-13 21:06] LABS: UDS - AMPHET NEGATIVE QUAL (NEGATIVE); UDS - BARB NEGATIVE QUAL (NEGATIVE); UDS - BENZO NEGATIVE QUAL (NEGATIVE); UDS - COCAINE NEGATIVE QUAL (NEGATIVE); UDS - METH NEGATIVE QUAL (NEGATIVE); UDS - OPIATE NEGATIVE QUAL (NEGATIVE); UDS - PCP NEGATIVE QUAL (NEGATIVE); UDS - THC NEGATIVE QUAL (NEGATIVE)
== END | disposition home or self-care (01) ==
LOC: D.ER 17:30
PROVIDERS: Physician Assistant
DX: F29 Unspecified psychosis not due to a substance or known physiological condition (principal); F22 Delusional disorders; F31.89 Other bipolar disorder; J44.9 Chronic obstructive pulmonary disease, unspecified; E11.9 Type 2 diabetes mellitus without complications; Z79.4 Long term (current) use of insulin; F17.200 Nicotine dependence, unspecified, uncomplicated

== ENCOUNTER 2017-12-26 22:32 | Emergency (ER) | payer MEDICAID ==
[~2017-12-26] VITALS: Ht 157.5 cm; Wt 90.9 kg
[~2017-12-26 22:32] MED LIST changes: +DEPAKOTE ER500 MG PO; +FUROSEMIDE20 MG PO; +K-TAB10 MEQ PO; +KLONOPIN0.5 MG PO; +LIPITOR10 MG PO; +LITHIUM CARBON300 MG PO; +NOVOLOG100 U/M1 SC; +POTASSIUM CHLOR8 ME1 PO; +PROLIXIN 5 MG TA5 MG PO
[2017-12-26 22:35] VITALS: Ht 157.5 cm; Wt 90.9 kg
[2017-12-26] MEDS ORDERED: SYNTHROID125 MCG PO (22:37)
[2017-12-26] MEDS ORDERED: KLOR-CON 1010 MEQ PO (22:37)
[2017-12-26] MEDS ORDERED: LIPITOR40 MG (22:38)
[2017-12-27 02:12] VITALS: BP 138/79
== END 2017-12-27 02:12 ==
LOC: D.ER 22:32
DX: S00.93XA Contusion of unspecified part of head, initial encounter (principal); W18.30XA Fall on same level, unspecified, initial encounter; Y93.89 Activity, other specified; Y92.129 Unspecified place in nursing home as the place of occurrence of the external cause; S16.1XXA Strain of muscle, fascia and tendon at neck level, initial encounter; M54.2 Cervicalgia; Z86.59 Personal history of other mental and behavioral disorders; E11.9 Type 2 diabetes mellitus without complications; J44.9 Chronic obstructive pulmonary disease, unspecified

== ENCOUNTER 2020-05-25 09:50 | Inpatient (IN) | payer MEDICARE ==
[~2020-05-25] VITALS: Ht 157.5 cm; Wt 96.0 kg
--- NOTE | ~2020-05-25 | DS ---
PATIENT:TIMOTHY ROCKWELL :52 MEDICAL RECORD: [id number] DISCHARGE SUMMARY ADMISSION DATE: 05/25/20 DISCHARGE DATE: 06/29/20 IDENTIFYING DATA: The patient is 70 years old and she was admitted to the hospital on a voluntary basis. CHIEF COMPLAINT: Agitation. HISTORY OF PRESENT ILLNESS: The patient has a longstanding history of bipolar disorder. She lives in a local long term. She is reportedly manic, agitated and delusional. She is also out of control. She is sleepy and difficult to arouse on admission. HOSPITAL COURSE: The patient was admitted to the hospital and fully evaluated from both a medical, psychological, and social standpoint. The patient was severely agitated, manic, and disruptive. Required numerous medication trials to bring her behaviors under control. She was subsequently transitioned out of the hospital. DISCHARGE DIAGNOSES: AXIS I: Bipolar disorder, mixed state. AXIS II: None. AXIS III: Diabetes, hypertension, hypothyroidism. AXIS IV: Moderate stressors. AXIS V: Global assessment of functioning is 40. PLAN: At the time of discharge, the patient was in good behavioral control with limited insight about her condition. She tolerates her medicines well. Her long-term prognosis is guarded. TRANSINT:[id number] Voice Confirmation ID: [id number] DOCUMENT ID: [id number] ARMIN SANTIAGO MD CC: [id number] DICTATION DATE: 06/29/20 163 PARK MAINTAINER: 06/30/201815 DIS IN 06/29/20 [facility] [address] [place] [address]
[~2020-05-25 09:50] MED LIST changes: +KLOR-CON 1010 MEQ PO; +LIPITOR40 MG; +SYNTHROID125 MCG PO
--- NOTE | 2020-05-25 11:00 | NUR ---
PT ADMITTED TO [facility] FOR HALLUCINATIONS, REFUSING MEDICATIONS, AND BELIEVES HER SON WAS KILLED. PT HAS HISTORY OF BIPOLAR PER REPORT AND DETENTION RECORDS. PT GAVE VERBAL CONSENT TO TREAT. WITNESSED BY CONNOR BURTON AT THIS TIME. PT IS A FULL CODE. PT REC'D COVID VACCINE 1ST DOSE ON 02/03/20 AND 2ND DOSE ON 03/02/20. PT DID HAVE COVID SEPTEMBER 08, 2019 PER DETENTION REPORT. COVID SWAB COLLECTED UPON ADMISSION. PT PLACED ON DROPLET PRECAUTION FOR PENDING COVID RESULTS AT THIS TIME. WILL CPOC.
[2020-05-25] MEDS ORDERED: ADVAIR 250-501 EAC1 INH (13:36)
[2020-05-25] MEDS ORDERED: BENZTROPINE MESY1 MG PO (13:37)
[2020-05-25] MEDS ORDERED: DEPAKOTE250 MG PO (13:41)
[2020-05-25] MEDS ORDERED: DEPAKOTE500 MG (13:43)
[2020-05-25] MEDS ORDERED: COLACE100 MG PO (13:43)
[2020-05-25] MEDS ORDERED: FERROUS FUMARA324 MG PO (13:44)
[2020-05-25] MEDS ORDERED: FISH OIL 1,0001 CA1 PO (13:45)
[2020-05-25] MEDS ORDERED: FLUPHENAZINE H2.5 MG PO (13:49)
[2020-05-25] MEDS ORDERED: GLIPIZIDE10 MG PO (13:50)
[2020-05-25] MEDS ORDERED: ZOFRAN4 MG PO (13:52)
[2020-05-25] MEDS ORDERED: ZYPREXA10 MG PO (13:55)
[2020-05-25] MEDS ORDERED: PROPRANOLOL HCL10 MG PO (13:55)
[2020-05-25] MEDS ORDERED: ALBUTEROL SULF8.5 GM INH (13:58)
[2020-05-25] MEDS ORDERED: SYNTHROID150 MCG PO (13:59)
[2020-05-25] MEDS ORDERED: ASCORBIC ACID500 MG PO (14:01)
[2020-05-25] MEDS ORDERED: ACETAMINOPHEN325 MG PO (14:01)
[2020-05-25] MEDS ORDERED: VITAMIN D325 MC1 PO (14:02)
[2020-05-25] MEDS ORDERED: NOVOLOG100 UNIT/1 SC (14:03)
[2020-05-25] MEDS ORDERED: KLONOPIN0.5 MG PO (14:04)
[2020-05-25] MEDS ORDERED: MUCINEX600 MG PO (14:04)
[2020-05-25] MEDS ORDERED: FUROSEMIDE20 MG PO (14:05)
[2020-05-25] MEDS ORDERED: LIPITOR40 MG PO (14:08)
[2020-05-25] MEDS ORDERED: MELATONIN 3 MG1 TAB PO (14:11)
[2020-05-25] MEDS ORDERED: MIRALAX17 GM PO (14:13)
[2020-05-25 17:51] LABS: BASOPHILS 0.1 % (0-2); EOSINOPHILS 1.6 % (0-7); HEMATOCRIT 34.5 % (36.0-48.0); HEMOGLOBIN 11.5 g/dL (12-16); IMMATURE GRANULOCYTES 0.6 % (0-5); LYMPHOCYTE ABS# 2.55 10x3/uL (1.18-3.74); LYMPHOCYTES 37.3 % (15-50); MCH 29.9 pg (26.0-34.0); MCHC 33.3 g/dL (31.0-37.0); MCV 89.6 fL (80.0-100.0); MEAN PLATELET VOLUME 11.4 fL (7.4-10.4); MONOCYTES 10.1 % (2-11); NEUTROPHIL ABS# 3.44 10x3/uL (1.56-6.13); NEUTROPHILS 50.3 % (40-80); PLATELET COUNT 250 10x3/uL (130-400); RBC 3.85 10x6/uL (4.00-5.40); RDW 12.7 % (11.5-14.5); WBC 6.8 10x3/uL (4.8-10.8)
[2020-05-25 18:32] LABS: ALBUMIN 3.3 g/dL (3.4-5.0); ANION GAP 10.3 mmol/L (8-16); BILIRUBIN - TOTAL 0.23 mg/dL (0.2-1.3); CALCIUM 9.7 mg/dL (8.5-10.1); CARBON DIOXIDE 30.2 mmol/L (21.0-32.0); CHOL - HDL RATIO 2.6 ratio (2.3-4.1); CREATININE - SERUM 1.5 mg/dL (0.6-1.3); LDL-HDL RATIO 1.2 ratio (1.5-3.5); POTASSIUM - SERUM 4.5 mmol/L (3.5-5.1); PROTEIN - SERUM 6.7 g/dL (6.4-8.2); THYROID STIMULATING HORMONE 0.05 uIU/mL (0.36-3.74); VALPROIC ACID (DEPAKOTE) 60.6 ug/mL (50.0-100.0)
--- NOTE | 2020-05-25 21:48 | NUR ---
RECEIVED IN BEDROOM. RESTING QUIETLY IN BED WITH EYES OPEN. CONFUSED. CALM AND COOPERATIVE WITH ADMIT ASSESSMENT AND CARE. NO SIGNS OF HALLUCINATIONS OR DELUSIONAL STATEMENTS. REDIRECT AND REORIENT NEEDED. CONTINUE PLAN OF CARE.
[2020-05-25 22:26] VITALS: BP 136/49
[2020-05-25 23:22] LABS: BILIRUBIN NEGATIVE (NEGATIVE); KETONE NEGATIVE (NEGATIVE); NITRITE NEGATIVE (NEGATIVE); UROBILINOGEN NORMAL mg/dL (< 2)
[2020-05-26 02:22] VITALS: BP 122/58; BMI 38.9
[2020-05-26 07:15] LABS: RAPID PLASMA REAGIN Non Reactive (Non Reactive)
[2020-05-26 08:00] VITALS: BP 121/48
[2020-05-26 14:05] VITALS: Ht 157.5 cm; Wt 96.0 kg
--- NOTE | 2020-05-26 15:37 | NUR ---
Rec'd patient lying in bed.She is A/O to person.She is med compliant and took her meds whole. She is on droplet precautions awaiting her covid admission results. She has been very quiet and has taken naps and layed quietly on her bed. She does little ADLs for herself and wants the staff to do all for her.She has displayed no outward hallucinations, yelling out, or paranoia.She has reddness tee. underneath her breast that she has rec'd an order for Nystatin powder. She is directable and redirectable. Socialization was completed today awaiting her lab results.
--- NOTE | 2020-05-26 16:02 | PSY ---
PATIENT NAME:TIMOTHY ROCKWELL MEDICAL RECORD: [id number] : 52 LOCATION:[facility] ADMISSION DATE: 05/25/20 ACCOUNT: [id number] PSYCHIATRIC EVALUATION DATE OF EVALUATION: 05/25/20 IDENTIFYING DATA: The patient is 70 years old and she is admitted to the hospital on a voluntary basis. CHIEF COMPLAINT: Agitation. HISTORY OF PRESENT ILLNESS: The patient has a longstanding bipolar disorder. She currently lives in a local care home. She is reportedly manic, agitated, delusional, and out of control there. She is sleepy, although I am not sure why, she probably has not been awake for very long, but for some reason, I am having trouble arousing her and keeping her awake. She is minimally interviewable and I would view the information that she is giving me as highly questionable. She does live in a local care home. She has been there for about 5 years. I am not sure why she lives in a care home, but again she has been manic and agitated there and they view her as a danger and cannot handle her. PAST MEDICAL HISTORY: Significant for diabetes, hypertension, and hypothyroidism. PAST PSYCHIATRIC HISTORY: Significant for lifelong chronic mental illness. The patient has a long established diagnosis of bipolar disorder and was first hospitalized when she was in high school. She has been institutionalized through much of her adult life and has been a long-term resident of the [facility]. She has had numerous hospitalizations. FAMILY HISTORY: Significant for Fajardo's chorea which killed one of her sons. She states that there is no family history of mental illness, which is improbable, that is what she states. SOCIAL HISTORY: The patient has been and twice. She has 2 children, one of whom of Fajardo's disease. The other child is middle aged and retired from the . She denies a history of drug or alcohol abuse. MENTAL STATUS EXAMINATION: The patient is awake, alert and oriented to person and somewhat to place, time and situation. Her mood is flat. Her affect is constricted. Memory, concentration, and abstraction abilities are impaired. She denies any intent to harm herself or others as well as psychotic symptoms. ASSESSMENT: AXIS I: Bipolar disorder, mixed state. AXIS II: None. AXIS III: Diabetes, hypertension, hypothyroidism. AXIS IV: Moderate stressors. AXIS V: Global assessment of functioning is 35. PLAN: At this time, the patient is admitted to the hospital for comprehensive medical, psychological, and social evaluation. She will be treated with both mood stabilizing and memory enhancing medications. Her long-term prognosis is guarded. TRANSINT:[id number] Voice Confirmation ID: [id number] DOCUMENT ID: [id number] ARMIN SANTIAGO MD at 1602 CC: [id number] DICTATION DATE: 05/25/20 1631 CLERICAL WAREHOUSEMAN: 05/25/20 1709 ADM IN [facility] [address] [place] [id number]
[2020-05-26 20:00] VITALS: BP 148/74
--- NOTE | 2020-05-26 20:39 | NUR ---
RECEIVED PATIENT IN THE HALLWAY (MASK ON). SHE IS ORIENTED TO PERSON, TIME BUT NOT PLACE OR SITUATION, SHE SAID THAT MARY JANE SENT HER HERE FROM [facility] BECAUSE SHE GOT MAD BECAUSE BLACK PEOPLE WERE GETTING HER REMOTE CONTROL FOR HER T.V. AND SHE DIDN'T WANT THEM TO. SHE HAS A VERY FLAT AFFECT, COMPLIANT WITH MEDS HERE. WILL FOLLOW POC
[2020-05-27 08:55] VITALS: BP 132/73
--- NOTE | 2020-05-27 09:29 | NUR ---
LAB CALLED AND PT SARS-19 RESULTS WERE NEGATIVE.
--- NOTE | 2020-05-27 16:09 | PN ---
PATIENT:TIMOTHY ROCKWELL MEDICAL RECORD: [id number] LOCATION:[facility] ADMISSION DATE: 05/25/20 PROGRESS NOTE DATE OF SERVICE: 05/26/2020 SUBJECTIVE: The patient's case was discussed with staff. She has no new complaint. OBJECTIVE: The patient is in good behavioral control. She has a significant amount of mood lability, but is generally cooperative. ASSESSMENT: 1. Bipolar disorder. 2. Dementia. PLAN: The patient's current medications have been reviewed. I am going to increase the dose of her Depakote and will discontinue the Prolixin and Cogentin. TRANSINT:[id number] Voice Confirmation ID: [id number] DOCUMENT ID: [id number] ARMIN SANTIAGO MD at 1609 CC: [id number] DICTATION DATE: 05/26/20 165 CERTIFIED SKI PATROLLER: 05/26/20 2333 ADM IN [address] [id number] [place] [address]
--- NOTE | 2020-05-27 18:20 | NUR ---
PT SITTING IN CHAIR. CALM AND COOPERATIVE. CONFUSION NOTED. REDIRECT AND REORIENT NEEDED. SARS-19 NEGAVTIVE. BIZARRE BEHAVIOR NOTED. COMPLIANT WITH MEDS, VITALS AND ASSESSMENTS. AMBULATES. REDIRECT NEEDED. PT DID NOT UNDERSTAND IT WAS HER ROOM AND WAS AGITATED WITH REDIRECTION. WILL CONT PLAN OF CARE.
[2020-05-27 20:00] VITALS: BP 142/93
--- NOTE | 2020-05-28 01:44 | NUR ---
B) Patient is alert and oriented to self, constantly worried, bizarre behavior at times, I) Administered scheduled medications as ordered, redirected as needed, monitored for safety, R) Medication compliant, sleeping now quietly in her bed, P) Continue plan of care.
[2020-05-28 10:00] VITALS: BP 143/59
--- NOTE | 2020-05-28 17:34 | NUR ---
pt sitting in dayarea at this time. pt is calm, cooperative with bizarre behaviors noted at times. withdrawn. confusion noted. redirect and reorient as needed. alert to self only. compliant with meds, vitals and assessments. no paranoid behaviors or hallucinations noted. ambulates. requires some assistance with adls. self toilets. bed alarm in place. will cont plan of care.
[2020-05-28 20:00] VITALS: BP 131/72
--- NOTE | 2020-05-28 20:42 | NUR ---
PT IS ALERT AND ORIENTED X4. RELATES SHE IS IN THE HOSPITAL BECAUSE THE AMBASSADOR OF THE [facility] PUT HER HERE. SHE IS RECEIVED IN THE HALLWAY SOCIALIZING WITH PEERS. SHE CAN BE DEMANDING AT TIMES. COMPLIANT WITH ALL MEDICATIONS. OBSERVED SHAKING ALL OVER. DENIES BEING COLD. EASY TO REDIRECT. PT STATED" OH DADDY I FORGAVE YOU FOR WHAT YOU DID BEFORE YOU DID IT." RELATES THAT SHE WOULDNT HURT ANYBODY ANA CONWAY KNOWS IT. MONITOR FOR SAFETY.
[2020-05-29 08:45] VITALS: BP 129/73
--- NOTE | 2020-05-29 18:27 | NUR ---
RECEIVED SITTING UP IN CHAIR THIS AM.IS AMBULATORY.ORIENTED TO SELF,PLACE AND TIME BUT SOME CONFUSION IS PRESENT.CALLS THIS NURSE DAGMAR.COMPLIANT WITH STAFF AND MEDS.WILL CONTINUE WITH CURRENT PLAN OF CARE,MONITOR FOR CHANGES AND SAFETY.
[2020-05-29 20:00] VITALS: BP 108/68
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
[2020-05-30 08:22] VITALS: BP 134/57
--- NOTE | 2020-05-30 15:06 | NUR ---
RECEIVED THIS AM IN BED.ORIENTED X 4.IS AMBULATORY.COMPLIANT WITH STAFF AND MEDS.YESTERDAY THOUGHT THIS NURSE WAS HER MOMMY BUT TODAY SHE HAS NOT EXPRESSED THAT BELIEF.WILL CONTINUE WITH CURRENT PLAN OF CARE,MONITOR FOR SAFETY AND CHANGES.
--- NOTE | 2020-05-30 16:02 | NUR ---
Rec'd patient up in bed this am. She is A/O times [address], and situation. She is med compliant and takes her meds whole. She is often demanding, has childlike behaviors, and attempts to manipulate staff to her being dependant on their care. She has demonstrated no hallucinations today. She is redirectable.
--- NOTE | 2020-05-30 20:08 | NUR ---
RECEIVED IN HALLWAY. SITTING QUIETLY IN A CHAIR. CALM AND COOPERATIVE WITH CARE AND ASSESSMENT. NO SIGNS OF HALLUCINATIONS OR PARANOIA. REDIRECT AND REORIENT NEEDED. CONTINUES TO SIT QUIETLY IN HALLWAY OUTSIDE OF NURSES STATION.
[2020-05-30 21:20] VITALS: BP 116/73
[2020-05-31 08:00] VITALS: BP 118/60
--- NOTE | 2020-05-31 08:54 | PN ---
PATIENT:TIMOTHY ROCKWELL MEDICAL RECORD: [id number] LOCATION:[facility] ADMISSION DATE: 05/25/20 PROGRESS NOTE DATE OF SERVICE: 05/27/2020 SUBJECTIVE: The patient's case was discussed with staff. She has no new complaint. OBJECTIVE: The patient is impaired cognitively, but her mood lability and bizarre, disorganized, psychotic behavior have improved. She is denying any thoughts of harming herself or others. ASSESSMENT: 1. Bipolar disorder. 2. Dementia. PLAN: Current medicines have been reviewed and will be maintained. Her long-term prognosis is guarded. TRANSINT:[id number] Voice Confirmation ID: [id number] DOCUMENT ID: [id number] ARMIN SANTIAGO MD at 0854 CC: [id number] DICTATION DATE: 05/27/20 170 RESPIRATORY CARE INSTRUCTOR: 05/27/208 ADM IN [facility] [address] [place] [address]
--- NOTE | 2020-05-31 10:52 | NUR ---
Nutrition Follow-up: Diet: Diabetic PO intake: varied 0-100%, ~49% average x last 9 meals Last BM: 05/31/20 Wt: 204# (05/30/20); Admit Wt: 212# (05/25/20) Meds noted: senokot, SSI, lasix, glipizide, miralax Labs noted: POC Glu 133(H) Noted -8# wt change. Patient with marginal PO intake so some weight change may be accurate. However, noted several other patients on residential with weight loss. Question accuracy of scales vs. fluid status. Also noted patient with edema per MD notes. Will continue to monitor wt trend and PO intake. Recommend continue current diet. RD will follow-up 06/02/20.
--- NOTE | 2020-05-31 17:36 | NUR ---
ALERT, CALM, COOPERATIVE, POOR COGNITION, CHILD-LIKE. NO HALLUCINATIONS OR YELLING OUT NOTED. MEDS ADMIN PER ORDERS WITH COMPLETE MED COMPLIANCE NOTED. APPETITE GOOD, FEEDS SELF. NO ADVERSE REACTION TO MEDICATIONS.
--- NOTE | 2020-05-31 20:45 | NUR ---
RECEIVED IN BEDROOM. EXITS BED WITHOUT ASSIST. DEMANDING AT TIMES. CALM AND COOPERATIVE WITH CARE AND ASSESSMENT. NO SIGNS OF HALLUCINATIONS OR PARANOIA. REDIRECT AND REORIENT NEEDED. MHT AT BEDSIDE TAKING VITALS AT THIS TIME. CONTINUE PLAN OF CARE.
[2020-05-31 21:42] VITALS: BP 101/53
[2020-06-01 14:19] VITALS: BP 121/44
--- NOTE | 2020-06-01 14:19 | PN ---
PATIENT:TIMOTHY ROCKWELL MEDICAL RECORD: [id number] LOCATION:[facility] ADMISSION DATE: 05/25/20 PROGRESS NOTE DATE OF SERVICE: 05/31/2020 SUBJECTIVE: The patient's case was discussed with staff. She has no new complaint. OBJECTIVE: The patient's mood lability has significantly improved. She denies that she would seek to harm herself. ASSESSMENT: Dementia. PLAN: I anticipate the patient can be transitioned of the hospital soon. TRANSINT:[id number] Voice Confirmation ID: [id number] DOCUMENT ID: [id number] ARMIN SANTIAGO MD at 1419 CC: [id number] DICTATION DATE: 05/31/20 1618 LICENSED PLUMBER: 05/31/20 2302 ADM IN [place] [id number] [place] [id number]
--- NOTE | 2020-06-01 17:04 | NUR ---
PT SITTING AT TABLE AT THIS TIME. PT IS CONFUSED. ALERT TO SELF ONLY. CALM AND COOPERATIVE WITH STAFF, MEDS AND VITALS. PT CAN BE DEMANDING AT TIMES. REDIRECT AND REORIENT NEEDED. CAN MAKE NEEDS KNOWN. PT CAN BE WITHDRAWN AT TIMES. TREMORS NOTED. NO AGGRESSION, HALLUCINATIONS NOTED. BED ALARM IN PLACE AND ACTIVE. WILL CONT PLAN OF CARE.
--- NOTE | 2020-06-01 17:20 | NUR ---
PT PACINH HALLWAY AT THIS TIME. PT YELLING, CUSSING STAFF, AND EXIT SEEKING. PT IS DELUSIONAL AT THIS TIME. PT STATING " SHE IS MAKING BOMBS AT THE WHITE HOUSE." PT SCREAMING OUT I WANT ANA CONWAY AND THE POLICE. UNABLE TO REDIRECT AT THIS TIME. ATIVAN 0.5MG IM GIVEN PER PRN ORDER. PT TALKING TO UNSEEN OTHERS AT THIS TIME. WILL CPOC.
--- NOTE | 2020-06-01 18:40 | NUR ---
NURSE CALLED DR. SANTIAGO TO REPORT INCREASE IN BEHAVIORS AFTER PRN MEDICATION ADMINISTRATION. PT CONTS TO YESSY WE ARE COMMUNIST, SHE WAS COVERED IN THE BLOOD OF ANA, EXIT SEEKING, REFUSED TO EAT, RESISTIVE TO ALL CARE. NEW ORDERS FOR: GEODON 20 MG IM Q 4 HR, ATIVAN 1 MG PO Q 1 HR, ATIVAN 1 MG IM Q 1 HR PRN MEDICATIONS. WILL ADMINISTER MEDICATIONS PER ORDER WHEN AVALIABLE.
--- NOTE | 2020-06-01 19:20 | NUR ---
GEODON 20MG IM GIVEN PER PRN ORDER. PT IS YELLING, CUSSING, AND ATTEMPTING TO BECOME COMBATIVE WITH STAFF. UNABLE TO REDIRECT AT THIS TIME. WILL CPOC.
--- NOTE | 2020-06-01 20:17 | NUR ---
RECEIVED IN HALLWAY. YELLING AND COMBATIVE WITH REDIRECTION. UNABLE TO REDIRECT. PRN GEODON 20 MG IM GIVEN FOR AGGRESSION. CONTINUES TO REDIRECT AND REORIENT NEEDED. RESTING QUIETLY IN BED AT THIS TIME. CONTINUE PLAN OF CARE.
[2020-06-02 09:22] VITALS: BP 106/44
--- NOTE | 2020-06-02 15:03 | PN ---
PATIENT:TIMOTHY ROCKWELL MEDICAL RECORD: [id number] LOCATION:[facility] ADMISSION DATE: 05/25/20 PROGRESS NOTE DATE OF SERVICE: 06/01/2020 SUBJECTIVE: The patient's case was discussed with staff. She has no new complaint. OBJECTIVE: The patient has been in good behavioral control. She is denying any thoughts of harming herself or others. ASSESSMENT: Dementia. PLAN: The patient will be taken off of the low dose of Klonopin she is taking. I believe that she can manage without that, but we will observe her for clinical changes. TRANSINT:[id number] Voice Confirmation ID: [id number] DOCUMENT ID: [id number] ARMIN SANTIAGO MD at 1503 CC: [id number] DICTATION DATE: 06/01/20 173 FISH SKINNING MACHINE FEEDER: 06/01/20 2341 ADM IN [facility] [address] [place] [id number]
--- NOTE | 2020-06-02 15:51 | NUR ---
Nutrition Re-Assessment Diet: Diabetic PO intake: ~72% average x last 9 meals Last BM: 05/31/20 Wt: 204# (05/30/20); Admit Wt: 212# (05/25/20)- noted weight change. Patient with adequate PO intake so RD questions fluid status vs. accuracy of scales. Will continue to monitor DHS. Meds noted: senokot, SSI, lasix, glipizide, miralax Labs noted: POC Glu 119(H) Estimated nutrition needs: 2967-3220 coral (25-30 Adj), 61-73gms protein (1-1.2), 1525-1825mL fluid (or per MD) Nutrition Diagnosis: Altered nutrition related lab values r/t DM dx AEB elevated blood glucose. Nutrition goals: -PO intake >65% meals -Meet fluid needs -Dry weight stable DHS Recommendations/Interventions: -Recommend continue current diet. Will continue to honor food preferences within diet restrictions. -Offer oral nutrition supplements if PO intake trends <65% or if wt continues to trend down at rapid rate. -RD will continue to monitor PO intake and wt trend. -RD will follow-up within 7 days.
--- NOTE | 2020-06-02 17:44 | NUR ---
HITTING OUTSIDE DOORS,ATTEMPTING TO LEAVE.YELLING OUT "I'M HAVING A BABY ,DON'T TOUCH ME,GOD HELP ME".WILL NOT REDIRECT.AGGRESSIVE WITH STAFF,HITS AT STAFF.MERA 20MG IM TO RT BUTTOCK GIVEN.
--- NOTE | 2020-06-02 18:15 | NUR ---
GOOD RESPONSE TO GEODON.CALM AND COOPERATIVE.
--- NOTE | 2020-06-02 19:19 | NUR ---
RECEIVED THIS AM SITTING UP IN CHAIR .IS ORIENTED TO SELF.COMPLIANT WITH MEDS AND STAFF MOST OF THE TIME.DID BECOME AGGRESSIVE AND ATTEMPTING TO LEAVE UNIT,HITTING OUTSIDE DOORS THIS EVENING.WAS HALLUCINATING AND DELUSIONAL,YELLING OUT",I'M HAVING A BABY,DON'T YOU TOUCH ME.GOD HELP ME." HALDOL AND ATIVAN WAS GIVEN PER ORDERS.WILL CONTINUE WITH CURRENT PLAN OF CARE,MONITOR FOR CHANGES AND SAFETY.
--- NOTE | 2020-06-02 19:30 | NUR ---
CORRECTION ON PRN GIVEN EARLIER AT 174 WAS NOT ATIVAN AND HALDOL.GEODON 20 MG IM TO RT BUTTOCK WAS GIVEN PER ORDERS.
[2020-06-02 20:00] VITALS: BP 121/53
--- NOTE | 2020-06-02 23:32 | NUR ---
PT IS ALERT AND ORIENTED X4. RECEIVED IN HALLWAY OUTSIDE NURSES STATION. SITTING ALONE. CAN BE DEMANDING AND ABLE TO VERBALIZE NEEDS. COOPERATIVE WITH STAFF AND COMPLIANT WITH ALL MEDICATIONS. NO HALLUCINATION NOTED. EASY TO REDIRECT. MONITOR FOR SAFETY.
[2020-06-03 09:58] VITALS: BP 100/68
--- NOTE | 2020-06-03 11:38 | PN ---
PATIENT:TIMOTHY ROCKWELL MEDICAL RECORD: [id number] LOCATION:[facility] ADMISSION DATE: 05/25/20 PROGRESS NOTE DATE OF SERVICE: 06/02/2020 SUBJECTIVE: The patient's case was discussed with staff. She has no new complaint. OBJECTIVE: The patient became extremely delusional and agitated last night. She required multiple p.r.n. medications to calm her. When asked about it today, she says that she had no problems yesterday. Everything is fine. ASSESSMENT: 1. Bipolar disorder. 2. Dementia. PLAN: The patient is going to be started on a low dose of Prolixin. I am aware of the allergy to Haldol, which is not actually an allergy, she had an extrapyramidal side effect. I do believe a high potency neuroleptic is indicated, but for the sake of caution I will start her off at a low dose. TRANSINT:[id number] Voice Confirmation ID: [id number] DOCUMENT ID: [id number] ARMIN SANTIAGO MD at 1138 CC: [id number] DICTATION DATE: 06/02/20 1527 RESIDENT CARE ASSOCIATE: 06/02/20 1717 ADM IN [place] [id number] [place] [address]
--- NOTE | 2020-06-03 14:20 | NUR ---
PT SITTING AT DINING ROOM TABLE. PT IS ALERT AND ORIENTED 4X. CAN MAKE NEEDS KNOWN. PT IS SITTING QUIETLY. PT CAN BE HARD TO REDIRECT AT TIMES. CAN AMBULATE. PT IS COMPLIANT WITH MEDS, VITALS AND ASSESSMENTS. NO HALLUCINTATIONS NOTED. BED ALARM IN PLACE. WILL CONT PLAN OF CARE.
--- NOTE | 2020-06-03 15:20 | NUR ---
PT PACING AND MOVING BETWEEN ROOMS. PT YELLING OUT AT STAFF AND TO SELF. PT IS CONFUSED. REDIRECT AND REDIRECT NEEDED. PT CAN MAKE NEEDS KNOWN. DIFFICULT TO REDIRECT AT TIMES. INCONTIENT AT TIMES. PT DURING FIRST PART OF SHIFT WAS CALM AND COOPERATIVE. BED ALARM IN PLACE AND ACTIVE. WILL CONT PLAN OF CARE
--- NOTE | 2020-06-03 17:20 | NUR ---
PT YELLING OUT "ANA HELP ME." PT CONTS TO YELL, EXIT-SEEK AND UNABLE TO REDIRECT SEVERAL TIMES. PT RESISTIVE WITH CARE. GEODON [address] SANTIAGO ORDER. WILL CONT PLAN OF CARE.
[2020-06-03 20:00] VITALS: BP 126/54
--- NOTE | 2020-06-03 20:21 | NUR ---
RECEIVED PATIENT IN THE HALLWAY SITTING AMONGST OTHERS, VERY FLAT AFFECT, SHE KEEPS HER MOUTH SLIGHTLY OPEN WITH TONGUE PROTUDING SLIGHTLY, SHE EVENTUALLY WENT TO HER ROOM AND SCREAMED FOR AN EXTRA BLANKET BECAUSE SHE WAS COLD. COMPLIANT WITH MEDS. WILL FOLLOW POC
[2020-06-04 08:30] VITALS: BP 140/76
[2020-06-04 09:27] VITALS: BP 126/70
--- NOTE | 2020-06-04 10:00 | NUR ---
OSVALDO BURTON FROM NIGHT REPORTS THAT PATIENT REFUSED HER 0700 BLOOD GLUCOSE CHECK.
--- NOTE | 2020-06-04 17:35 | NUR ---
pt sitting at dining table. pt is confused and oriented to person, place. lacks insight to situation. pt yells out at times. pt can be difficult to redirect at times. flat affect noted. tremors continue. pt is compliant with meds, vitals and assessments. no combative behaviors noted. continue to redirect pt behavior. will cont to monitor. can make needs known. ambulates. at times asks staff to push her in w/c. staff conts to encourage ambulating to maintain independence. bed alarm in place and active. will cont plan of care.
[2020-06-04 20:00] VITALS: BP 104/54
--- NOTE | 2020-06-04 20:30 | NUR ---
PT IS ALERT AND ORIENTED TO SELF AND SITUATION. SHE IS RECEIVED IN THE HALLWAY YELLING AT STAFF. RESTLESS. EXIT SEEKING. DEMANDING AND STATES "DADDY YOU ONLY RAPED ME ONCE, I FORGIVE YOU." YELLING IN STAFFS FACES. UNABLE TO REDIRECT. COMPLIANT WITH ALL MEDICATIONS.
--- NOTE | 2020-06-05 05:18 | NUR ---
PT RESTING IN BED TALKING WITH UNSEEN OTHERS. EASY TO REDIRECT BUT HAS TO BE REDIRECTED OFTEN.
[2020-06-05 08:00] VITALS: BP 121/80
--- NOTE | 2020-06-05 16:21 | NUR ---
ALERT, YELLS ALOUD AT TIMES AND OFTEN REPEATS THE SAME PHRASES MANY TIMES. DIFFICULT TO RE-DIRECT. HOWEVER, PATIENT SINGS GOSPEL SONGS AT TIMES. MEDS ADMIN PER ORDERS WITH NO ADVERSE REACTION NOTED. CONTINUE PLAN OF CARE OUTLINED.
--- NOTE | 2020-06-05 17:06 | NUR ---
PATIENT HAS BEEN REPEATEDLY SAYING THAT SHE WAS MAKING AND ANTIDOTE FOR THE ATOMIC BOMB THATS HOVERING OVER [facility]
[2020-06-05 20:00] VITALS: BP 127/92
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
[2020-06-06 08:00] VITALS: BP 101/40
--- NOTE | 2020-06-06 09:00 | NUR ---
Received In bed with eyes closed. Responds to verbal stimuli. Oriented to self and place at ths time. Patient has poor insight into situation. Patient is hyperverbal. Patient randomly yells out numbers 1,3,5,6,7,8. Pt is hyper zoroastrianism at this time. Patient is stating "she is covered in the blood of Mart." Patient screams and yells out for no reason throughout the shift. Patient puts herself in the floor and refuses to get up per staff multiple times throughout the shift. Prescribed medications provided as ordered. Med compliant. Redirect and reorient as needed. Fall precautions in place for safety. Will continue plan of care.
--- NOTE | 2020-06-06 14:00 | NUR ---
PT PUT HERSELF IN THE FLOOR AND REFUSED TO GET UP PER STAFF AT THIS TIME. PT REFUSED TO ANSWER STAFF OR MAKE EYE CONTACT WITH STAFF AT THIS TIME. WILL CPOC.
--- NOTE | 2020-06-06 14:35 | NUR ---
Patient screaming and yelling " I am covered in the blood of terence." Patient screaming out at staff thatb her brother Shakeel is coming to attack everyone. Patient is rocking back and forth in the bed. Childlike behaviors noted at this time. Pt is hyperverbal and hypersexual. Unable to redirect patient at this time. Patient is disrupting the whole unit. Geodon 20 mg IM given per as needed orders at this time. Will continue to monitor.
--- NOTE | 2020-06-06 17:45 | NUR ---
Patient came out her room running down the hallway. Attempted to enter nurses station and doctor's lounge. Redirected per staff. Patient screaming, yelling, and aggressive with staff. Patient threatening to bomb staff Members. Patient is screaming I am covered in the blood of Mart. Unable to redirect patient at this time. Pt stated " I going to burn my house down and murder and continue to ramble." Pt is currently singing loudly in her room. Dr. Simon notified. New order Geodon 20 mg IM NOW and Ativan 2 mg IM NOW. New orders noted and medications given per order. Will cpoc.
--- NOTE | 2020-06-06 20:31 | NUR ---
RECEIVED IN BEDROOM. YELLING OUT AND SINGING VERY LOUDLY. CALM AND COOPERATIVE WITH CARE AND ASSESSMENT. NO SIGNS OF AGGRESSION. REDIRECT AND REORIENT NEEDED. STATED TO NURSE AT [facility], "DO YOU WANT TO SEE MY TITTIES. THEY ARE BIG." NURSE STATED, "NO. THAT'S INAPPROPRIATE BEHAVIOR." CONTINUES TO REDIRECT NEEDED. CONTINUE PLAN OF CARE.
[2020-06-06 21:12] VITALS: BP 135/96
[2020-06-07 08:00] VITALS: BP 120/76
--- NOTE | 2020-06-07 08:53 | NUR ---
fat purification worker to patient this morning. Patient stated that she was Mart Chalino and going to crucify herself on the cross. She reported that the people at the correction were going to kill her. She can eat her food because there is things in it. She wanted coffee but had to put it over ice because it is will get the demons out of it. Sw redirected pt but pt continued to escalate. She states if I the whole world will and go to hell. LINDA reported behaviors to RN.
--- NOTE | 2020-06-07 14:25 | NUR ---
PATIENT SEXUALLY INAPPROPRIATE, EXPOSING HERSELF IN DAYROOM AND MAKING LEWD REMARKS TO STAFF. GEODON 20 MG ADMIN IM PER ORDERS. JULIUS WELL.
--- NOTE | 2020-06-07 15:16 | PN ---
PATIENT:TIMOTHY ROCKWELL MEDICAL RECORD: [id number] LOCATION:[facility] ADMISSION DATE: 05/25/20 PROGRESS NOTE DATE OF SERVICE: 06/03/2020 SUBJECTIVE: The patient's case was discussed with staff. She has no new complaint. OBJECTIVE: The patient is calmer and cooperative today. Yesterday, she was quite agitated. She has tolerated her Prolixin well and I plan to increase that dose. ASSESSMENT: 1. Bipolar disorder. 2. Dementia. PLAN: Current medicines have been reviewed. Her long-term prognosis is guarded. TRANSINT:[id number] Voice Confirmation ID: [id number] DOCUMENT ID: [id number] ARMIN SANTIAGO MD at 1516 CC: [id number] DICTATION DATE: 06/03/20 164 ELECTRICAL CONTINUITY TESTER: 06/03/20 1810 ADM IN [place] [id number] [place] [id number]
--- NOTE | 2020-06-07 16:23 | NUR ---
PATIENT CONT MANIC BEHAVIOR, YELLING AND SINGING LOUDLY. UNABLE TO RE-DIRECT. ATIVAN 2 MG ADMIN IM PER ORDERS. JULIUS WELL.
--- NOTE | 2020-06-07 18:18 | NUR ---
RENETTA CONTINUES TO EXPERIENCE ANXIETY AND MANIC BEHAVIOR. ATIVAN 2 MG ADMIN IM, LEFT DELTOID. JLUIUS WELL.
[2020-06-07 18:48] LABS: BASOPHILS 0.2 % (0-2); EOSINOPHILS 1.5 % (0-7); HEMATOCRIT 37.5 % (36.0-48.0); IMMATURE GRANULOCYTES 0.3 % (0-5); LYMPHOCYTE ABS# 3.77 10x3/uL (1.18-3.74); LYMPHOCYTES 37.1 % (15-50); MCH 29.9 pg (26.0-34.0); MCV 93.3 fL (80.0-100.0); MEAN PLATELET VOLUME 11.8 fL (7.4-10.4); MONOCYTES 8.4 % (2-11); NEUTROPHIL ABS# 5.33 10x3/uL (1.56-6.13); NEUTROPHILS 52.5 % (40-80); PLATELET COUNT 232 10x3/uL (130-400); RBC 4.02 10x6/uL (4.00-5.40); RDW 13.2 % (11.5-14.5); WBC 10.2 10x3/uL (4.8-10.8)
[2020-06-07 19:37] LABS: ANION GAP 15.7 mmol/L (8-16); CARBON DIOXIDE 26.7 mmol/L (21.0-32.0); POTASSIUM - SERUM 4.4 mmol/L (3.5-5.1); THYROID STIMULATING HORMONE 0.37 uIU/mL (0.36-3.74)
[2020-06-07 20:59] VITALS: BP 118/76
--- NOTE | 2020-06-07 21:07 | NUR ---
RECEIVED IN HALLWAY OUTSIDE OF NURSES STATION. AGITATION WITH STAFF. YELLING OUT. ANXIETY. PRN GEODON 20 MG IM GIVEN FOR AGITATION AT 2041. COOPERATIVE WITH CARE AND ASSESSMENT. REDIRECT AND REORIENT NEEDED. PT IS SITTING QWUIETLY IN A WHEELCHAIR IN HALLWAY AT THIS TIME. CONTINUE PLAN OF CARE.
--- NOTE | 2020-06-08 01:58 | NUR ---
RESTLESS IN BED. AGITATION WITH STAFF. PRN GEODON 20 MG IM GIVEN FOR AGITATION.
--- NOTE | 2020-06-08 03:59 | NUR ---
CONTINUES TO BE RESTLESS. ANXIETY. YELLING OUT. AGITATION. UNABLE TO REDIRECT. ATIVAN 2 MG IM GIVEN FOR PSYCHOSIS
--- NOTE | 2020-06-08 07:38 | NUR ---
SITTING UP IN RECLINER IN HALLWAY AT NURSES STATION.SINGING OUT LOUD AND YELLING OUT,MANIC BEHAVIOR.WILL NOT REDIRECT.ATIVAN 2 MG IM TO LEFT DELTOID GIVEN PER ORDERS FOR PSYCHOTIC BEHAVIOR.
[2020-06-08 08:00] VITALS: BP 114/76
--- NOTE | 2020-06-08 08:15 | NUR ---
FEEDS SELF BREAKFAST.CALMER .
--- NOTE | 2020-06-08 11:50 | NUR ---
IS AWAKE AND ATTEMPTING TO GET OUT OF CHAIR WITHOUT ASSIST.YELLING OUT AND TALKING ABOUT HER RING AND HER MARRIAGE AT THE [employer].WILL NOT REDIRECT.TALKED WITH [place] PHARMACIST IN THIS HOSPITAL'S PHARMACY REGARDING SAFETY OF GIVING ANOTHER DOSE OF ATIVAN AT THIS TIME,IT IS SAFE TO GIVE.WILL MEDICATE FOR PSYCHOTIC BEHAVIOR.
--- NOTE | 2020-06-08 15:49 | PN ---
PATIENT:TIMOTHY ROCKWELL MEDICAL RECORD: [id number] LOCATION:[facility] ADMISSION DATE: 05/25/20 PROGRESS NOTE DATE OF SERVICE: 06/07/2020 SUBJECTIVE: The patient's case was discussed with staff. She has no new complaint. OBJECTIVE: The patient is partially oriented, but is primarily delusional and manic. She is insisting that she is Mart Chalino and has been crucified. She thinks the social media manager is the Cassie Muir. She pulls her blouse up and exposes her breasts to me in the dayroom and makes a number of hypersexual vulgar comments. Her speech is rapid and pressured in every way. She appears to be someone suffering from a manic episode. ASSESSMENT: 1. Bipolar disorder. 2. Dementia. PLAN: At this time, the patient has a therapeutic Depakote level, but the Depakote has not been effective and in fact she has dramatically worsened. I am going to treat her with lithium knowing that there are a number of relative contraindications associated with both her lab and pharmacology, but I do not see any alternative at this point. To assist with bringing her young under control, I am going to also prescribe a benzodiazepine and antipsychotic. Her prognosis is guarded. She is rambling and incoherent, but apparently she has been to the [facility] a number of times and that would be a further indication that her condition is severe and that it is a chronic mental illness. TRANSINT:[id number] Voice Confirmation ID: [id number] DOCUMENT ID: [id number] ARMIN SANTIAGO MD at 1549 CC: [id number] DICTATION DATE: 06/07/201707 DIGITAL MEDIA REPRESENTATIVE: 06/08/20 0131 ADM IN [facility] [address] [place] [address]
[2020-06-08 16:15] VITALS: BP 109/73
--- NOTE | 2020-06-08 16:15 | NUR ---
PT IN RESTROOM WITH STAFF MEMBER PER REPORT. PT WAS ATTEMPTING TO PU;; HER PANTS DOWN AND SIT ON THE TOILET AND SHE FELL OVER. STAFF UNABLE TO CATCH HER PER TECH REPORT. DR. GIRALDO PRESENT. NO NEW ORDERS NOTED. BONNIE CHECKS STARTED. NO S/SX OF PAIN OR DISTRESS NOTED. PT DENIES ANY PAIN OR DISCOMFORT AT THIS TIME. WILL CPOC.
[2020-06-08 20:30] VITALS: BP 103/63
--- NOTE | 2020-06-08 20:54 | NUR ---
RECEIVED IN DAYROOM. SITTING IN A CHAIR WITH PEERS AT HER SIDE. CALM AND COOPERATIVE WITH CARE AND ASSESSMENT. NO SIGNS OF HALLUCINATION OR PARANOIA. REDIRECT AND REORIENT NEEDED. CONTINUES TO SIT CALMLY IN DAYROOM. CONTINUE PLAN OF CARE.
--- NOTE | 2020-06-08 22:16 | NUR ---
RESISTANT TO REDIRECTION. YELLING OUT AND SINGING LOUDLY. DEMANDING WITH STAFF. PRN GEODON 20 MG IM GIVEN FOR PSYCHOTIC BEHAVIOR. CONTINUE TO MONITOR FOR SAFETY.
--- NOTE | 2020-06-08 23:06 | NUR ---
RESTING IN BED WITH EYES CLOSED AT THIS TIME.
[2020-06-09 08:00] VITALS: BP 116/60
--- NOTE | 2020-06-09 11:49 | NUR ---
Patient has been yelling all morning. She has also been having hallucinations of "having a babyin my belly", where's momma..she's here", people "gona kill me". She has slowly become combative and non directable. Per MD order, Tanya BARRERA given.
--- NOTE | 2020-06-09 15:20 | NUR ---
PT SITTING AND TALKING TO SELF AT THIS TIME. PT IS IMPLUSIVE, DEMANDING, YELLS OUT AT TIMES AND SEXUAL INAPPOPRIATE. CONFUSION NOTED. PT IS ALERT TO PERSON, PLACE. LACKS INSIGHT TO SITUATION. COMPLIANT WITH MEDS, VITALS AND ASSESSMENTS. PT EATS WELL. REDIRECT PT BEHAVIORS NEEDED. PT IS UNSTEADY AT THIS TIME. REQUIRES ASSISTANCE WITH ADLS. CHAIR AND BED ALARM IN PLACE AND ACTIVE. WILL CONT PLAN OF CARE.
--- NOTE | 2020-06-09 16:29 | NUR ---
Nutrition Re-Assessment Diet: Diabetic PO intake: ~50% average x last 9 meals (varied 0-100%) Last BM: 06/06/20 Wt: 200# (06/06/20); Admit Wt: 212# (05/25/20). Noted -12# x 2 weeks. *Also, noted that patient is on lasix. Meds noted: glipizide, SSI, senokot, miralax, lasix Labs noted: GFR 26(L), BUN 36(H), Cr 2.0(H), POC Glu 127(H) Estimated nutrition needs: 4103-8245 coral (25-30 Adj), 54-72gms protein (0.6-0.8), 1500-1800mL fluid (or per MD) Nutrition diagnosis: Inadequate energy intake r/t inadequate oral intake AEB PO intake ~50% average and -12# weight loss recorded. Nutrition goals: -PO intake will increase to >75% meals -Meet fluid needs -Stable weight DHS Recommendations/Interventions: -Will continue to honor food preferences within diet restrictions. -Add Glucerna TID with meals. -RD will follow-up within 7 days.
--- NOTE | 2020-06-09 18:40 | NUR ---
Rec'd patient this am ambulating in room. She is med compliant and takes meds whole. She has had Hallucinations thru out the day. She is demanding and somatic. She was PRN medicated this morning and this afternoon with Tanya BARRERA for demanding, combative behavior and verbal offensive langugage to other patients and staff. She was not directable and re-directable.
[2020-06-09 20:00] VITALS: BP 116/52
--- NOTE | 2020-06-09 22:50 | NUR ---
RECEIVED PATIENT IN HALLWAY, MANIC, HYPERVERBAL, TELLING STAFF THAT SHE LOVES THEM, WANTING NUMEROUS THINGS. COMPLIANT WITH MEDS. NO ADVERSE REACTION NOTED. WILL FOLLOW POC
[2020-06-10 08:00] VITALS: BP 139/69
--- NOTE | 2020-06-10 11:16 | PN ---
PATIENT:TIMOTHY ROCKWELL MEDICAL RECORD: [id number] LOCATION:[facility] ADMISSION DATE: 05/25/20 PROGRESS NOTE DATE OF SERVICE: 06/08/2020 SUBJECTIVE: The patient's case was discussed with staff. She has no new complaint. OBJECTIVE: The patient is calmer today, but limited in her insight. ASSESSMENT: 1. Bipolar disorder. 2. Dementia. PLAN: I have checked the patient's creatinine it is 2.0. I do not think she is going to be able to tolerate lithium. I am going to ask for a renal consult. She must have a mood stabilizer, the Depakote was not efficacious at a blood level of 60. I am going to treat her with a higher dose and push it near the toxic range to try to bring her young under control. This is a real clinical dilemma in a patient who is seriously mentally ill. TRANSINT:[id number] Voice Confirmation ID: [id number] DOCUMENT ID: [id number] ARMIN SANTIAGO MD at 1116 CC: [id number] DICTATION DATE: 06/08/20 171 OFFICE NURSE PRACTITIONER: 06/08/20 6509 ADM IN [facility] [address] [place] [id number]
--- NOTE | 2020-06-10 11:16 | PN ---
PATIENT:TIMOTHY ROCKWELL MEDICAL RECORD: [id number] LOCATION:[facility] ADMISSION DATE: 05/25/20 PROGRESS NOTE DATE OF SERVICE: 06/09/2020 SUBJECTIVE: The patient's case was discussed with staff. She has no new complaint. OBJECTIVE: The patient is very agitated and manic. She is making very vulgar statements that are of hypersexual nature. She is otherwise rambling, incoherent and threatening. ASSESSMENT: Bipolar disorder, manic. PLAN: The patient is going to be maintained on current medicines. I am going to add Zyprexa at a dose of 10 mg twice daily. I did discontinue her lithium because her creatinine is 2.0. I will also ask renal to evaluate her renal functioning. TRANSINT:[id number] Voice Confirmation ID: [id number] DOCUMENT ID: [id number] ARMIN SANTIAGO MD at 1116 CC: [id number] DICTATION DATE: 06/09/201711 PROCEDURE RN: 06/10/20 0039 ADM IN [facility] [address] [place] [address]
--- NOTE | 2020-06-10 14:29 | NUR ---
respiratory therapy reported to nurse at this time that pt was vulgar and sexual inappopriate to him during previous encounter. nurse stated with him at this time. no behavior noted.
--- NOTE | 2020-06-10 15:13 | NUR ---
Patient rec'd this am sitting in a w/c at the desk. She is A/O to person and situation. She is med compliant and takes her meds whole. She spent most of the morning yelling out random information like she "wanted perfume", singing gospel songs and then making inappropriate remarks about sex to the staff and to the other patients. She attends a little of group/ex/therapy time. She is confused, demanding, childlike in behavior, and disruptive at times. She is directable and redirectable occasionally. She is provided positive feedback and encouragement.
--- NOTE | 2020-06-10 17:10 | NUR ---
PT SITTING IN CHAIR AT THIS TIME. PT IS CONFUSED TO SITUATION ONLY. REDIRECT AND REORIENT NEEDED. PT CAN BE DEMANDING, CHILDLIKE AND DISRUPTIVE. COMPLIANT WITH MEDS, VITALS AND ASSESSMENTS. ORIENTED TO PERSON, PLACE AND TIME. CAN AMBULATE. CHAIR ALARM IN PLACE AND ACTIVE IF NEEDED. WILL CONT PLAN OF CARE.
[2020-06-10 17:16] LABS: ANION GAP 10.2 mmol/L (8-16); CALCIUM 10.5 mg/dL (8.5-10.1); CARBON DIOXIDE 31.1 mmol/L (21.0-32.0); CREATININE - SERUM 1.9 mg/dL (0.6-1.3); POTASSIUM - SERUM 4.3 mmol/L (3.5-5.1); THYROID STIMULATING HORMONE 0.88 uIU/mL (0.36-3.74)
--- NOTE | 2020-06-10 17:24 | NUR ---
Lab calls with patients blood glucose at 61. Encouraged patient to drink her milk and offered her peanut butter and ellen crackers. She accepted and ate and drank.
[2020-06-10 20:00] VITALS: BP 145/70
--- NOTE | 2020-06-11 00:59 | NUR ---
B) Patient is alert and oriented to person, place and time, childlike and attention seeking, wanders at times, I) Administered scheduled medications as ordered, PRN geodon 20 mg IM given at 19:45 for anxiety R) Medication compliant, worried about medication harming her 'baby' P) Continue plan of care.
[2020-06-11 08:00] VITALS: BP 149/111
--- NOTE | 2020-06-11 17:56 | NUR ---
PT SITTING AT TABLE AT THIS TIME. PT IS CONFUSED, DEMANDING AND HAS BIZARRE BEHAVIOR. ALERT TO PERSON, PLACE AND TIME. LACKS INSIGHT TO SITUATION. PT YELLOS OUT AT TIMES. REDIRECT BEHAVIOR. PT CAN BE INTRUSIVE AND DISRUPTIVE. CONT TO PROMOTE INDEPENDNECE WITH ADLS. CAN MAKE NEEDS KNOWN. COMPLIANT WITH MEDS, VITALS AND ASSESSMENTS. CONT TO ENCOURAGE FLUIDS AND MEALS. AMBULATES. WILL CONT PLAN OF CARE.
[2020-06-11 20:00] VITALS: BP 132/70
--- NOTE | 2020-06-11 20:05 | NUR ---
PT IS ALERT AND ORIENTED TO SELF AND PLACE. RECEIVED IN THE HALLWAY OUTSIDE THE NURSES STATION. YELLING AT STAFF "BENITEZ! DONT LET DADDY HURT YOU!" ATTEMPTED TO REDIRECT. PACING THE HALLWAY AT TIMES WHILE YELLING. UNABLE TO REDIRECT. ADMINISTERED PRN GEODON IM FOR AGITATION. COMPLIANT WITH ALL HS MEDICATIONS. MONITOR FOR SAFETY.
--- NOTE | 2020-06-11 20:30 | NUR ---
PT RESTING CALMLY IN BED. NO DISTRESS NOTED. PRN EFFECTIVE
[2020-06-12 08:58] VITALS: BP 99/45
--- NOTE | 2020-06-12 11:53 | NUR ---
STAFF HEARD LOUD THUD THEN BED ALARM SOUNDED. PT NOTED ON FLOOR TO LEFT SIDE OF BED PT WAS ON HER SIDE, BLEEDING NOTED TO HER LEFT EYEBROW 1 INCH GASH NOTED. PT STATED I FELL OUT THE BED I NEED TO GO TO THE BATHROOM." 3X STAFF MEMBERS TO ASSIST PT INTO THE BED. PT IS CONFUSED. DENIES PAIN. ACTIVE ROM. DENIES ANY PAIN. VITAL SIGNS: B/P: 141/51, P: 94, R: 25, O2 SAT: 93%.
--- NOTE | 2020-06-12 11:55 | NUR ---
NURSE ATTEMPTED TO CALL DR. REYES. NO ANSWER AT THIS TIME.
--- NOTE | 2020-06-12 11:59 | NUR ---
NURSE NOTIFIED PROJECT CONSULTANT, NURSE CHILD CAREGIVER. DR. REYES NEW ORDER: STERI STRIPS, CAT SCAN.
--- NOTE | 2020-06-12 18:31 | NUR ---
PATIENT TURNED PALOMA ALARM OFF AND PLACED HERSELF ON THE FLOOR IN THE [place] NEAR THE NURSES STATION. NO INJURIES NOTED. PATIENT REFUSES TO ARISE AND GET BACK IN CHAIR AND IS INTENT LYING ON THE FLOOR. STAFF STATED THAT SHE WAS SEEN EARLIER IN THE SHIFT TURNING HER ALARM OFF BECAUSE SHE SAID IT WAS A RADAR DETECTOR.
[2020-06-12 21:23] VITALS: BP 165/75
--- NOTE | 2020-06-12 23:15 | NUR ---
PT IS RECEIVED IN THE HALLWAY OUTSIDE THE NURSES STATION. HYPERVERBAL, YELLING OUT DELUSIONAL STATEMENTS OFTEN. NOTED DROOLING WHILE SITTING IN A WHEELCHAIR. COMPLIANT WITH ALL MEDICATIONS. UNSTEADY GAIT. RESISTANT TO REDIRECTION. OBSERVED PT PULLING UP HER SHIRT IN FRONT OF PCT. UNABLE TO REDIRECT. ASSISTED TO HER BED AND COVERED WITH A WARM BLANKET. PT RESTING CALMLY IN BED WITH EYES CLOSED. MONITOR FOR SAFETY.
--- NOTE | 2020-06-13 00:28 | NUR ---
PT ATTEMPTS TO GET OUT OF BED WITHOUT ASSIST. VERY UNSTEADY GAIT. CABLE FORMER ASSIST PT TO BATHROOM. SHE STATES "IM TEN MONTHS WITH YOUR BABY AND ITS GOING TO BE TWINS." ATTEMPTS TO REDIRECT. PT PLACED BACK INTO BED AND STATES "I JUST WANT TO SEE YOUR SHIRLEY" INFORMED PT THAT BEHAVIORS IS INAPPROPRIATE AND COVERED WITH A BLANKET. WILL CONTINUE TO MONITOR
--- NOTE | 2020-06-13 04:01 | NUR ---
PT REFUSED 0400 VITALS FOR NEURO CHECK. YELLING AT STAFF STATING "YOU ARE EVIL YOU TRIED TO KILL NABIL AND BAMBIE. YOU CANNOT KILL BAMBIE SHE IS BACK IN MY WOMB." PT LAYING IN BED YELLING OUT. MONITOR FOR SAFETY.
[2020-06-13 08:00] VITALS: BP 136/72
--- NOTE | 2020-06-13 15:28 | NUR ---
Rec'd this am lying in bed yelling. She is med compliant and takes meds whole. She is a/o times one to person. She hollers and yells and has a tendency to yell so much that it most often times upsets the other patients.. She attended group music this am with very little participation. She is most often able to be directed and redirected. She was given an IM PRN medication this am as she was not directable.
--- NOTE | 2020-06-13 20:07 | NUR ---
RECEIVED IN BEDROOM. RESTING IN BED WITH EYES OPEN. RESTLESS. ATTEMPTS TO EXIT BED WITHOUT ASSIST. PALOMA ALARM SOUNDING. YELLING OUT AT TIMES. CALM AND COOPERATIVE WITH CARE AND ASSESSMENT. NO SIGNS OF HALLUCINATIONS OR PARANOIA. CONTINUES TO RESTING IN EYES OPEN. CONTINUE PLAN OF CARE.
[2020-06-13 21:50] VITALS: BP 123/54
[2020-06-14 08:00] VITALS: BP 106/59
--- NOTE | 2020-06-14 08:00 | NUR ---
REC'D PT SITTING IN RECLINING CHAIR. PT IS AWAKE AND ALERT TO PERSON ONLY AT THIS TIME. PT YELLS OUT AT STAFF DURING SHIFT AND IS DIFFICULT TO REDIRECT. DELUSIONAL AT THIS TIME. PRESCRIBED MEDS PROVIDED ORDERED. MED COMPLIANT. REDIRECT AND REORIENT NEEDED. FALL PRECAUTIONS IN PLACE. WILL CPOC.
--- NOTE | 2020-06-14 14:40 | PN ---
PATIENT:TIMOTHY ROCKWELL MEDICAL RECORD: [id number] LOCATION:[facility] ADMISSION DATE: 05/25/20 PROGRESS NOTE DATE OF SERVICE: 06/10/2020 SUBJECTIVE: The patient's case was discussed with staff. She has no new complaint. OBJECTIVE: The patient is in good behavioral control, but still very vulgar and manic. ASSESSMENT: Bipolar disorder. PLAN: The patient will have a Depakote level checked along with renal functions. TRANSINT:[id number] Voice Confirmation ID: [id number] DOCUMENT ID: [id number] ARMIN SANTIAGO MD at 1440 CC: [id number] DICTATION DATE: 06/10/20 1609 MANAGER E COMMERCE: 06/10/202006 ADM IN [facility] [address] [place] [address]
[2020-06-14 17:36] LABS: BASOPHILS 0.2 % (0-2); HEMATOCRIT 37.5 % (36.0-48.0); HEMOGLOBIN 11.6 g/dL (12-16); IMMATURE GRANULOCYTES 0.7 % (0-5); LYMPHOCYTE ABS# 3.38 10x3/uL (1.18-3.74); LYMPHOCYTES 40.2 % (15-50); MCH 29.9 pg (26.0-34.0); MCHC 30.9 g/dL (31.0-37.0); MCV 96.6 fL (80.0-100.0); MONOCYTES 6.9 % (2-11); NEUTROPHIL ABS# 4.12 10x3/uL (1.56-6.13); PLATELET COUNT 251 10x3/uL (130-400); RBC 3.88 10x6/uL (4.00-5.40); RDW 14.1 % (11.5-14.5); WBC 8.4 10x3/uL (4.8-10.8)
[2020-06-14 18:09] LABS: ANION GAP 12.5 mmol/L (8-16); CALCIUM 9.8 mg/dL (8.5-10.1); CARBON DIOXIDE 29.1 mmol/L (21.0-32.0); CREATININE - SERUM 1.8 mg/dL (0.6-1.3); POTASSIUM - SERUM 4.6 mmol/L (3.5-5.1); THYROID STIMULATING HORMONE 0.93 uIU/mL (0.36-3.74); VALPROIC ACID (DEPAKOTE) 82.7 ug/mL (50.0-100.0)
--- NOTE | 2020-06-14 20:13 | NUR ---
RECEIVED IN DAYROOM. SITTING IN A RECLINER WITH A PEER AT HER SIDE. NOT YELLING OUT. CALM AND COOPERATIVE WITH CARE AND ASSESSMENT. NO SIGNS OF HALLUCINATIONS OR PARANOIA. REDIRECT AND REORIENT NEEDED. CONTINUES TO SIT CALMLY IN DAYROOM. CONTINUE PLAN OF CARE.
[2020-06-14 20:17] VITALS: BP 127/68
[2020-06-15 08:00] VITALS: BP 113/66
--- NOTE | 2020-06-15 08:33 | NUR ---
REC'D PT IN BED WITH EYES CLOSED. RESPONDS TO VERBAL STIMULI. ASSESSMENT COMPLETED. PT CAN BECOME EASLIY AGITATED. PT YELLS OUT DURING SHIFT. PT IS DIFFICULT TO REDIRECT AT TIMES. PT IS DELUSIONAL. PT SITS ON THE FLOOR AND REFUSES TO HELP STAFF GET UP. REDIRECT AND REORIENT NEEDED. FALL PRECAUTIOSN IN PLACE. WILL CPOC.
--- NOTE | 2020-06-15 15:20 | PN ---
PATIENT:TIMOTHY ROCKWELL MEDICAL RECORD: [id number] LOCATION:[facility] ADMISSION DATE: 05/25/20 PROGRESS NOTE DATE OF SERVICE: 06/14/2020 SUBJECTIVE: The patient's case was discussed with staff. She has poor insight about her situation. She continues to have manic behaviors. ASSESSMENT: Bipolar disorder. PLAN: The patient's valproic acid is therapeutic. I will check baseline lab. TRANSINT:[id number] Voice Confirmation ID: [id number] DOCUMENT ID: [id number] ARMIN SANTIAGO MD at 1520 CC: [id number] DICTATION DATE: 06/14/20 1627 PANEL WIRER: 06/15/20 0004 ADM IN [facility] [address] [place] [address]
[2020-06-15 18:00] LABS: ANION GAP 11.3 mmol/L (8-16); CALCIUM 9.6 mg/dL (8.5-10.1); CARBON DIOXIDE 30.1 mmol/L (21.0-32.0)
[2020-06-15 18:20] LABS: POTASSIUM - SERUM 5.4 mmol/L (3.5-5.1)
[2020-06-15 19:58] VITALS: BP 121/48
--- NOTE | 2020-06-15 20:19 | NUR ---
RECEIVED IN DAYROOM. RESTING IN A RECLINER WITH EYES CLOSED. CALM AND COOPERATIVE WITH CARE AND ASSESSMENT. NO SIGNS OF HALLUCINATIONS OOR PARANOIA. REDIRECT AND REORIENT NEEDED. CONTINUES TO REST QUIETLY WITH EYES CLOSED. CONTINUE PLAN OF CARE.
--- NOTE | 2020-06-15 22:26 | NUR ---
DR REYES CALLED WITH LAB RESULTS. NEW ORDER TO PUSH FLUIDS RECEIVED. NO FURTHER ORDERS AT THIS TIME.
[2020-06-16 08:00] VITALS: BP 122/61
--- NOTE | 2020-06-16 09:47 | PN ---
PATIENT:TIMOTHY ROCKWELL MEDICAL RECORD: [id number] LOCATION:[facility] ADMISSION DATE: 05/25/20 PROGRESS NOTE DATE OF SERVICE: 06/15/2020 SUBJECTIVE: The patient's case was discussed with staff. She has no new complaint. OBJECTIVE: The patient is very disorganized, delusional and sexually inappropriate. ASSESSMENT: Bipolar disorder. PLAN: The patient will be treated with Depakote and Zyprexa at a higher dose. She is also dehydrated. I will address this with her assembler for puller over machine. TRANSINT:[id number] Voice Confirmation ID: [id number] DOCUMENT ID: [id number] ARMIN SANTIAGO MD at 0947 CC: [id number] DICTATION DATE: 06/15/201656 MASTER SCHEDULER: 06/16/20 0007 ADM IN [facility] [address] [place] [address]
--- NOTE | 2020-06-16 10:51 | NUR ---
Nutrition Re-Assessment Diet: Diabetic + Glucerna TID PO intake: ~75% meals x last 9 meals Last BM: 06/14/20 Wt: 204# (06/13/20); Admit Wt: 212# (05/25/20), 204# (05/30/20)- RD questions accuracy of admit wt. Meds noted: senokot, vit C, lasix, dulcolax, SSI, glipizide Labs noted (06/15/20): K 5.4(H), BUN 51(H), Cr 2.0(H), GFR 26(L), Glu 61(L), POC Glu 177(H)- 06/16/20 Estimated nutrition needs: 4020-7454 coral (25-30 Adj), 54-72gms protein (0.6-0.8), 1500-1800mL fluid (or per MD) Nutrition diagnosis: Altered nutrition related lab values r/t kidney dysfunction, CKD stage 4 dx AEB K 5.4, BUN 51, Cr 2.0, GFR 26. Nutrition goals: -PO intake =/>75% meals -Dry weight stable -Blood glucose and K trend nearer WNL Recommendations/Interventions: -Recommend MD to check PO4. If K and PO4 remain high may need to transition patient to a renal diet. -Will continue to honor food preferences within diet restrictions. -RD will follow-up within 7 days.
--- NOTE | 2020-06-16 11:26 | NUR ---
REC'D PT IN BED WITH EYES CLOSED. REPSONDS TO VERBAL STIMULI. REFUSES TO GET OUT OF BED FOR BREAKFAST AT THIS TIME. ASSESSMENT COMPLETED. PT ENCOURAGED TO GET UP AND GET DRESSED FOR THE DAY PER STAFF. NO AGGRESSION NOTED AT THIS TIME. PT BEHAVIOR APPEARS FLAT AT THIS TIME. PRESCRIBED MEDICATIONS PROVIDED ORDERED. MED COMPLIANT. STAFF ENCOURAGING PT TO DRINK FLUIDS PER MD ORDER. REDIRECT AND REORIENT NEEDED. FALL PRECAUTIONS IN PLACE FOR SAFETY. WILL CPOC.
--- NOTE | 2020-06-16 16:30 | NUR ---
NEW ORDER RECEIVED FROM DR REYES VIA TELEPHONE TO INFUSE 1/2NS @ 125 ML/HR X 3 BAGS.
[2020-06-16 20:00] VITALS: BP 96/45
--- NOTE | 2020-06-16 21:21 | NUR ---
PT IS ORIENTED TO SELF ONLY. RECEIVED IN DAYROOM SLEEPING IN GERICHAIR. YELLS OUT AT TIMES. PLACE 22G IV IN RIGHT FOREARM X1 ATTEMPT. IV INFUSING 1/2 NS AT 125ML PER ORDERS. COMPLIANT WITH ALL MEDICATIONS. COMPLAINS OF BACK PAIN. ADMINISTERED PRN TYLENOL PER ORDERS. PLACED IN BED WITH WARM BLANKET. YELLS OUT INCOHERANT STATEMENTS AT TIMES. EASY TO REDIRECT. MONITOR FOR SAFETY.
--- NOTE | 2020-06-17 14:15 | PN ---
PATIENT:TIMOTHY ROCKWELL MEDICAL RECORD: [id number] LOCATION:[facility] ADMISSION DATE: 05/25/20 PROGRESS NOTE DATE OF SERVICE: 06/16/2020 SUBJECTIVE: The patient's case was discussed with staff. She has no new complaint. OBJECTIVE: The patient is somewhat sedated, but cooperative. Staff is trying to force fluids with her and I will check lab tomorrow to see if it is effective. Currently, her BUN and creatinine are significantly elevated. ASSESSMENT: Bipolar disorder. PLAN: Current medicines have been reviewed. I am going to taper the scheduled dose of Klonopin slightly. TRANSINT:[id number] Voice Confirmation ID: [id number] DOCUMENT ID: [id number] ARMIN SANTIAGO MD at 1415 CC: [id number] DICTATION DATE: 06/16/20 175 REAR ADMIRAL: 06/17/20 0026 ADM IN [facility] [address] [place] [address]
[2020-06-17 15:25] LABS: ANION GAP 12.1 mmol/L (8-16); CALCIUM 9.2 mg/dL (8.5-10.1); CARBON DIOXIDE 27.4 mmol/L (21.0-32.0); CREATININE - SERUM 1.9 mg/dL (0.6-1.3); POTASSIUM - SERUM 5.5 mmol/L (3.5-5.1)
--- NOTE | 2020-06-17 17:40 | NUR ---
PT SITTING IN CHAIR AT THIS TIME. PT RESTING AT THIS TIME. PT IS CALM AND COOPERATIVE. CONFUSED. ALERT TO SELF ONLY. COMPLIANT WITH MEDS. PT REMOVED IV AT THIS SHIFT. DR. REYES DISCONTINUED MEDICATIONS AT THIS TIME. REDIRECT AND REORIENT NEEDED. NO AGGRESSIVE BEHAVIOR NOTED. CONTS TO VISUALLY HALLUCINATIONS. BED AND CHAIR ALARM IN PLACE. WILL CONT PLAN OF CARE.
[2020-06-17 20:00] VITALS: BP 153/60
--- NOTE | 2020-06-17 21:03 | NUR ---
PT IS ALERT AND ORIENTED TO SELF ONLY. SHE IS GROGGY AT TIMES BUT RESPONDS TO VERBAL STIMULI. RELATES TO THIS NURSE THAT SHE WANTS A WARM BLANKET FROM THE DRYER. PROVIDED WARM BLANKET. COMPLIANT WITH ALL MEDICATIONS AND PROVIDED HS SNACK. SHE STATES "BENITEZ I BROKE MY BACK WHEN I FELL THE OTHER DAY AND IM DYING. I WANT TO SEE MY DOCTOR." INFORMED PT SHE WILL SEE HER DOCTOR IN THE MORNING AND COVERED WITH WARM BLANKET. PT RESTING CALMLY IN BED WITH EYES CLOSED. MONITOR FOR SAFETY.
[2020-06-18 08:00] VITALS: BP 129/73
[2020-06-18 08:05] LABS: ANION GAP 13.6 mmol/L (8-16); CALCIUM 9.4 mg/dL (8.5-10.1); CARBON DIOXIDE 27.8 mmol/L (21.0-32.0); CREATININE - SERUM 1.7 mg/dL (0.6-1.3); POTASSIUM - SERUM 5.4 mmol/L (3.5-5.1)
--- NOTE | 2020-06-18 17:15 | NUR ---
pt up eating at this time. staff monitoring due to pt being groggy at this time. calm and cooperative with staff and peers. confusion noted. alert to person at this time. redirect and reorient as needed. can not make needs known. requires 2x assistance with adls. incontient pericare q 2hr and prn. nurse crushed pts meds. staff assist feeds at times. conts to encourage fluids and meals. pt conts to be weak at this time. chair alarm in place and active. will cont plan of care.
[2020-06-18 20:00] VITALS: BP 165/90
--- NOTE | 2020-06-19 04:03 | NUR ---
B)RECEIVED PATIENT SITTING IN A RECLINER IN THE HALLWAY OUTSIDE NURSE'S STATION. ORIENTED TO PERSON AND PLACE. RELATES THE REASON FOR HOSPITALIZATION IS "MUNA PUT ME HERE. I GUESS I WAS A BAD GIRL. I CUSSED SOME BLACKS OUT BECAUSE THEY WERE TRYING TO TAKE MY REMOTE." CHILDLIKE AND HELPLESS RELATING "WILL YOU COVER ME UP MOMMA? WILL YOU TUCK ME IN?" I)ADMINISTER MEDS AND MONITOR COMPLIANCE. ENCOURAGE PATIENT TO TRY AND DO FOR HERSELF. R)MED COMPLIANT. REMAINS CHILDLIKE AND HELPLESS. P)CONTINUE POC AND PROVIDE SAFE ENVIRIONMENT.
[2020-06-19 08:00] VITALS: BP 111/65
--- NOTE | 2020-06-19 16:43 | NUR ---
PT SITTING IN CHAIR YELLING OUT AT THIS TIME. CONFUSION NOTED. ALERT TO SELF ONLY. REDIRECT AND REORIENT NEEDED. PT IS COMPLIANT WITH CRUSHED MEDS, VITALS AND ASSESSMENTS. REQUIRES 2X ASSISTANCE WITH ADLS. CAN NOT AMBULATE AT THIS TIME. NO AGGRESSIVE BEHAVIOR NOTED. PT IS CALLING OUT FOR HER MOTHER AND DADDY. CONT TO REDIRECT PTS BEHAVIOR. CHAIR ALARM IN PLACE. PERICARE Q 2 HR AND PRN. WILL CONT PLAN OF CARE.
--- NOTE | 2020-06-19 19:25 | NUR ---
Gabriel CROUCH APRN CALLED ASKING FOR LUMBER X-RAY RESULTS. NURSE CALLED X-RAY TO FIND INFORMATION ON RESULTS. IT WAS REPORTED VIA [facility] THAT THE RESULTS HAD NOT BEEN READ AT THIS TIME. HE WOULD INQUIRE ABOUT GETTING IT READ NOW. NURSE THANKED NURSE AND RELIED MESSAGE TO Gabriel CROUCH APRN.
[2020-06-19 20:00] VITALS: BP 104/60
--- NOTE | 2020-06-20 02:38 | NUR ---
B)RECEIVED PATIENT SITTING IN A RECLINER OUTSIDE THE NURSE'S STATION WITH EYES CLOSED. ORIENTED TO PERSON, PLACE. SLEEPING ALOT. HELPLESS AND CHILDLIKE. WILL CALL YOU MOMMA AND WANT YOU TO COVER HER UP AND TUCK HER IN. I)ADMINISTER MEDS AND MONITOR COMPLIANCE. R)MED COMPLIANT CRUSHED IN APPLESAUCE. DID SWALLOW THE DEPAKOTE WHOLE. P)CONTINUE POC AND PROVIDE SAFE ENVIRONMENT.
[2020-06-20 07:30] VITALS: BP 99/41
--- NOTE | 2020-06-20 08:00 | NUR ---
RECEIVED PATIENT IN BED WITH EYES CLOSED. PATIENT RESPONDS TO VERBAL STIMULI. PATIENT IS ALERT TO PERSON ONLY AT THIS TIME. PATIENT REFUSED MEDICATIONS X3. PATIENT IS SLEEPING A LOT THIS SHIFT. PATIENT IS HELPLESS AND HAS CHILDLIKE BEHAVIORS AT THIS TIME. REDIRECT AND REORIENT NEEDED. FALL PRECAUTIONS IN PLACE FOR SAFETY. WILL CONTINUE PLAN OF CARE.
--- NOTE | 2020-06-20 15:46 | NUR ---
STAFF NOTED PATIENT REMOVING THE PAD AND ALARM FROM HER CHAIR. PT. GETTING UP UNASSISTED AND WALKING INTO THE HALLWAY. PATIENT EDUCATED AT THIS TIME. HOWEVER, PATIENT DOES NOT VERBALIZE UNDERSTANDING. ALARM PLACED IN CHAIR PER STAFF FOR SAFETY. ALARM IS INTACT AND WORKING PROPERLY AT THIS TIME. WILL CPOC.
--- NOTE | 2020-06-20 19:57 | NUR ---
RECEIVED IN BEDROOM. EXITING BED WITHOUT ASSIST. YELLING OUT. MOVED TO HALLWAY FOR SAFETY. CALM AND COOPERATIVE WITH CARE AND ASSESSMENT. NO SIGNS OF HALLUCINATIONS OR PARANOIA. REDIRECT AND REOREINT NEEDED. CONTINUES TO BE RESTLESS IN HALLWAY. YELLING OTU AT TIMES. CONTINUE PLAN OF CARE.
[2020-06-20 20:00] VITALS: BP 142/72
--- NOTE | 2020-06-21 07:45 | NUR ---
REC'D PT IN HALLWAY BY THE NURSES STATION. AWAKE AND ALERT TO PERSON ONLY. ASSESSMENT COMPLETED. PRESCRIBED MEDS PROVIDED ORDERED. MED COMPLIANT. REDIRECT AND REORIENT NEEDED. FALL PRECAUTIONS IN PLACE. WILL CPOC.
[2020-06-21 08:21] VITALS: BP 123/70
--- NOTE | 2020-06-21 09:42 | PN ---
PATIENT:TIMOTHY ROCKWELL MEDICAL RECORD: [id number] LOCATION:[facility] ADMISSION DATE: 05/25/20 PROGRESS NOTE DATE OF SERVICE: 06/17/2020 SUBJECTIVE: The patient's case was discussed with staff. She has no new complaint. OBJECTIVE: The patient is in good behavioral control with limited insight. ASSESSMENT: Bipolar disorder. PLAN: The patient has critical lab values with her BUN and creatinine. She has not been drinking adequately secondary to being so agitated and difficult to redirect. She is going to require IV hydration. TRANSINT:[id number] Voice Confirmation ID: [id number] DOCUMENT ID: [id number] ARMIN SANTIAGO MD at 0942 CC: [id number] DICTATION DATE: 06/17/20 165 GEOPHYSICAL LABORATORY CHIEF: 06/17/20 1821 ADM IN [facility] [address] [place] [address]
[2020-06-21 10:17] LABS: BASOPHILS 0.4 % (0-2); EOSINOPHILS 1.3 % (0-7); HEMATOCRIT 35.9 % (36.0-48.0); HEMOGLOBIN 11.6 g/dL (12-16); MCH 29.8 pg (26.0-34.0); MCHC 32.3 g/dL (31.0-37.0); MCV 92.3 fL (80.0-100.0); MEAN PLATELET VOLUME 9.8 fL (7.4-10.4); MONOCYTES 6.1 % (2-11); NEUTROPHILS 57.2 % (40-80); PLATELET COUNT 212 10x3/uL (130-400); RBC 3.88 10x6/uL (4.00-5.40); RDW 13.8 % (11.5-14.5); WBC 6.3 10x3/uL (4.8-10.8)
[2020-06-21 10:26] LABS: ANION GAP 12.9 mmol/L (8-16); CALCIUM 9.7 mg/dL (8.5-10.1); POTASSIUM - SERUM 5.9 mmol/L (3.5-5.1)
[2020-06-21 20:00] VITALS: BP 114/41
--- NOTE | 2020-06-21 23:21 | NUR ---
RECEIVED IN HALLWAY, SITTING IN WHEELCHAIR WITH PEERS AT HER SIDE.YELLING OUT AT TIMES. STANDS WITHOUT ASSIST. CALM AND COOPERATIVE WITH CARE AND ASSESSMENT. NO SIGNS OF HALLUCINATIONS OR PARANOIA. REDIRECT AND REORIENT NEEDED. RESTING IN BED WITH EYES CLOSED AT THIS TIME. CONTINUE PLAN OF CARE.
--- NOTE | 2020-06-22 15:37 | NUR ---
RECEIVED PATIENT IN HALLWAY BY NURSES STATION. AWAKE AND ALERT TO PERSON. CALM AND COOPERATIVE WITH ASSESSMENT AT THIS TIME. PRESCRIBED MEDICATIONS PROVIDED ORDERED. MED COMPLIANT. REDIRECT AND REORIENT NEEDED. PATIENT DOES YELL OUT FOR NO APPARENT REASON IN DAY ROOM. PATIENT'S MOOD IS LABILE. FALL PRECAUTIONS IN PLACE FOR SAFETY. WILL CPOC.
[2020-06-22 20:00] VITALS: BP 120/57
--- NOTE | 2020-06-23 00:07 | NUR ---
B)RECEIVED PATIENT SITTING OUTSIDE THE NURSES STATION. ORIENTED TO SELF AND PLACE. RELATES SHE IS HERE BECAUSE "BIOLOGICAL SCIENCE TECHNICIAN PUT ME HERE FOR OBSERVATION." INTRUSSIVE WITH MULTIPLE REQUEST ONE RIGHT AFTER THE OTHER. INSTRUCTED PATIENT IT WILL BE A MINUTE BEFORE SOMEONE IS FREE TO HELP HER AND PATIENT RELATED "I'M IMPATIENT." CHILDLIKE AND WANTS ASSISTANCE WITH ALL TASK IE WANTED STAFF HELP HER PUT HER HAIR IN PONYTAIL. ASKED THE NURSE IF SHE WOULD GO AND AND BUY HER A CARTON OF CIGARETTES THAT SHE HAS $3000. IN [place]. EXPLAINED CIGARETTES ARE NOT ALLOWE ON CAMPUS THAT SHE HAS A NICOTENE PATCH. ASKED NURSE "WILL YOU MAKE SURE I GET A NICOTENE PATCH?" I)ADMINISTER MEDS AND MONITOR COMPLIANCE. REDIRECT FOR INTRUSSIVE BEHAVIOR. R)MED COMPLIANT. POOR REDIRECTION. CONTINUES TO INTERRUPT STAFF THEY ARE HELPING OTHER PATIENTS WANTING THINGS SUCH HER COAT OFF, DRINK OF WATER, CIGARETTES, ICE CREAM ETC. REMAINS IMPATIENCE.
[2020-06-23 06:17] LABS: ANION GAP 11.3 mmol/L (8-16); CALCIUM 9.1 mg/dL (8.5-10.1); CARBON DIOXIDE 29.2 mmol/L (21.0-32.0); POTASSIUM - SERUM 5.5 mmol/L (3.5-5.1)
[2020-06-23 08:19] VITALS: BP 122/69
--- NOTE | 2020-06-23 09:57 | NUR ---
NURSE REPORTED PTS CURRENT LABS FOR BUN AND CREAT. BUN WAS 51 AND CREAT IS 2.0, VITAL SIGNS STABLE, INCREASE IN CREAT/BUN RATIO OF 6 POINT INCREASE FROM THE PREVIOUS LABS. NEW ORDER TO ENCOURAGE AND PUSH FLUIDS.
--- NOTE | 2020-06-23 10:50 | NUR ---
Rec'd patient this am up in W/C in hallway. She is sitting with her eyes closed. She is A/O to person, place, and situation. She is med compliant and took her meds whole without difficulty. She has sat with the group this morning watching TV during group. She did take a few naps sitting with her eyes closed. She has been very quiet and cooperative this am. She has not been in a childlike, needy, intrussive, or helpless behavior this morning. She is directable and redirectable.
--- NOTE | 2020-06-23 11:09 | NUR ---
Patient has drank 3 8 oz glasses of water in addition to her breakfast fluids. Staff is encouraging her to drink fluids as much as possible due to lab results.
--- NOTE | 2020-06-23 14:39 | NUR ---
STAFF CONTS TO ENCOURAGE PT TO DRINK FLUIDS AND AMBUALTE WITH MONITORING. PT IS COOPERATIVE AND TOLERATING WELL.
--- NOTE | 2020-06-23 15:21 | NUR ---
Nutrition Re-Assessment Diet: Diabetic + Glucerna TID PO intake: ~53% average x last 6 meals. PO intake appears to have increased over the past 2 days compared to earlier this week. Last BM: 06/23/20 Wt: 199# (06/20/20); Admit Wt: 212# (05/25/20); 204# (05/30/20)- RD questions accuracy of recorded admit wt Meds noted: megace (started 06/21), miralax, senokot, dulcolax, glipizide, SSI Labs noted: K 5.5(H), BUN 51(H), Cr 2.0(H), GFR 26(L), Glu 120(H), POC Glu 136(H) Estimated nutrition needs: 1500-1800cal (25-30kcal/kg Adj), 54-72gms protein (0.6-0.8), 1500-1800mL fluid (or per MD) Nutrition diagnosis: Inadequate energy intake r/t inadequate oral intake AEB PO intake <65% average. Nutrition goals: -PO intake will increase to >65% -Stable dry weight Recommendations/Interventions: -Recommend continue current diet and oral nutrition supplement. Will continue to honor food preferences within diet restrictions. -Recommend continue appetite stimulant as medically feasible. -RD will continue to monitor PO intake and wt trend. -RD will follow-up within 7 days.
--- NOTE | 2020-06-23 19:07 | NUR ---
nurse ambulated with nurse to restroom and back to w/c at this time. pt tolerated very well.
[2020-06-23 20:00] VITALS: BP 134/69
--- NOTE | 2020-06-24 00:13 | NUR ---
B)RECEIVED PATIENT SITTING OUTSIDE THE NURSE'S STATION. ORIENTED TO SELF AND PLACE. THINKS SHE IS HERE BECAUSE THE SLITTER AND REWINDER OF THE PRISON PUT HER HERE FOR OBSERVATON. NEEDY AND WILL ASK FOR MULTIPLE THINGS BEFORE ANYONE HAS STARTED ADDRESSING HER FIRST REQUEST. AT TIMES SHE WILL ASSIST WITH CARE AND AT TIMES SHE WILL NOT ATTEMPT TO ASSIST AT ALL. CHILDLIKE AND ATTENTION SEEKING. POOR INTERACTION WITH PEERS. I)ADMINISTER MEDS AND MONITOR COMPLIANCE. ENCOURAGE PATIENT TO PARTICIPATE IN CARE DAILY. R)MED COMPLIANT. PT WALKED FROM HALLWAY TO HER BATHROOM AND BACK TO HER WHEELCHAIR WITH ASSIST FROM NURSE ON DAY SHIFT. THEN AGAIN SHE WON'T ATTEMPT TO ASSIST WITH TRANSFER FROM WHEELCHAIR TO BED RELATING "I CAN'T." UNPREDICTABLE WITH CARE. P)CONTINUE POC AND PROVIDE SAFE ENVIRONMENT.
[2020-06-24 07:40] LABS: ANION GAP 10.6 mmol/L (8-16); CALCIUM 9.2 mg/dL (8.5-10.1); CARBON DIOXIDE 30.1 mmol/L (21.0-32.0); CREATININE - SERUM 1.7 mg/dL (0.6-1.3); POTASSIUM - SERUM 5.7 mmol/L (3.5-5.1)
[2020-06-24 09:17] VITALS: BP 133/70
--- NOTE | 2020-06-24 14:50 | NUR ---
PT EVAL BY PHYSICAL THERAPY. PT WAS TIRED AND DID NOT AMBULATE VERY FAR.
--- NOTE | 2020-06-24 15:20 | NUR ---
Kristy Barksdale APRN ordered depakote level for 19:30 on next shift. will pass along in report.
--- NOTE | 2020-06-24 17:10 | NUR ---
PT SITTING WITH EYES CLOSED. PT IS CALM AND COOPERATIVE WITH STAFF. ALERT TO PERSON, PLACE AND TIME. PT IS DISORIENTED TO SITUATION. LOC ALTERS AT TIMES. PT CAN BE NEEDY AND INTRUSSIVE AT TIMES. REDIRECT AND REORIENT NEEDED. PT IS COMPLIANT WITH PO H2O INTAKE PER DOCTOR REQUEST. PT IS COMPLIANT WITH WHOLE PO MEDICATIONS, VITALS AND ASSESSMENTS. CAN MAKE NEEDS KNOWN. CHAIR ALARM IN PLACE AND ACTIVE. WILL CONT PLAN OF CARE.
[2020-06-24 19:27] VITALS: BP 135/36
--- NOTE | 2020-06-25 04:48 | NUR ---
B)RECEIVED PATIENT SITTING IN THE DAYROOM WITH PEERS. ORIENTED TO PERSON AND PLACE. CHILDLIKE AND ATTENTION SEEKING. INTRUSSIVE AT TIMES WHEN SOMEONE ELSE IS GETTING ASSISTANCE SHE WILL ASK FOR THE SAME THING THE OTHER PATIENT HAS GOTTEN. REQUIRES ENCOURAGEMNT AND POSITIVE FEEDBACK WHEN TRYING TO GET PATIENT TO ASSIST WITH CARE, I)ADMINISTER MEDS AND MONITOR COMPLIANCE. REDIRECT FOR INTRUSSIVE BEHAVIORS. R)MED COMPLIANT. REDIRECTS HOWEVER REPEATS THE SAME BEHAVIORS. P)CONTINUE POC AND PROVIDE SAFE ENVIRONMENT.
[2020-06-25 08:48] VITALS: BP 121/50
--- NOTE | 2020-06-25 16:38 | NUR ---
blood pressure: 134/71. P: 78
[2020-06-25 20:08] VITALS: BP 119/56
--- NOTE | 2020-06-25 21:11 | NUR ---
PT IS ALERT AND ORIENTED TO SELF AND SITUATION. SHE IS RECEIVED IN HER BED IN HER ROOM SLEEPING. CALM AND COOPERATIVE WITH STAFF. COMPLIANT WITH MEDICATIONS. EDUCATED PT ON PUSHING FLUIDS. PT VERBALIZED UNDERSTANDING. EASY TO REDIRECT. NO HALLUCINATIONS AT THIS TIME. MONITOR FOR SAFETY.
[2020-06-26 07:35] VITALS: BP 132/51
--- NOTE | 2020-06-26 16:23 | NUR ---
IS ORIENTED X 3.VERY NEEDY.COMPLIANT WITH STAFF AND MEDS.INCONTINENT OF URINE .VERY SLOWLY PROPELLS SELF IN WHEELCHAIR.NO HALLUCINATIONS OBSERVED TODAY.WILL CONTINUE WITH CURRENT PLAN OF CARE,MONITOR FOR CHANGES AND SAFETY.
[2020-06-26 19:52] VITALS: BP 145/33
--- NOTE | 2020-06-26 21:47 | NUR ---
PT IS ALERT AND ORIENTED TO SELF AND PLACE. RECEIVED IN THE HALLWAY OUTSIDE THE NURSES STATION SOCIALIZING WITH PEERS. PLEASANT WITH STAFF. OBSERVED YELLING AT ONE TIME STATED "NO I KNOW YOU DIDNT MEAN TO DO THAT." COMPLIANT WITH ALL MEDICATIONS. EDUCATED PT ON IMPORTANCE OF FLUID INTAKE. PT VERBALIZED UNDERSTANDING. EASY TO REDIRECT. ABLE TO VOICE NEEDS AND WANTS. ATTEMPTS TO BE DEPENDANT ON OTHERS FOR ADLS BUT WITH ENCOURAGMENT CAN PERFOM SIMPLE ADL'S. MONITOR FOR SAFETY.
[2020-06-27 07:30] VITALS: BP 129/66
--- NOTE | 2020-06-27 08:30 | NUR ---
RECEIVED IN PATIENT ROOM. RESTING IN BED WITH EYES CLOSED. CALM AND COOPERATIVE WITH CARE AND ASSESSMENT. YELLS OUT AT TIMES. NO HALLUCINATIONS NOTED. NO PARANOID STATEMENTS MADE. REDIRECT AND REORIENT NEEDED. EATING BREAKFAST AT THIS TIME. CONTINUE PLAN OF CARE.
--- NOTE | 2020-06-27 14:58 | NUR ---
Rec'd patient this am sitting up in hallway. She was med compliant and took meds whole without difficulty. Her 7 am blood glucose was at 154. She is on nectar thickened liquids. She attempts to be dependent on staff and will ask staff to do things for her that she can do herself. She wants to be dependant. She has to be redirected often. She sat in group this am but did little participation.
[2020-06-27] MEDS ORDERED: DEPAKOTE500 MG PO (15:17)
[2020-06-27] MEDS ORDERED: DEPAKOTE ER500 MG PO (15:17)
[2020-06-27] MEDS ORDERED: NICODERM CQ1 EAC1 TRANSDERM (15:18)
[2020-06-27] MEDS ORDERED: PERFOROMIS20 MCG/21 INH (15:19)
[2020-06-27] MEDS ORDERED: FISH OIL 1,0001 CA1 PO (15:20)
[2020-06-27] MEDS ORDERED: ALBUTEROL2.5 MG/3 M INH (15:20)
[2020-06-27] MEDS ORDERED: ACETAMINOPHEN325 MG PO (15:21)
[2020-06-27] MEDS ORDERED: ZYPREXA10 MG PO (15:22)
[2020-06-27] MEDS ORDERED: PROLIXIN 5 MG TA5 MG PO (15:22)
[2020-06-27] MEDS ORDERED: KLONOPIN1 MG PO (15:23)
[2020-06-27] MEDS ORDERED: MUCINEX600 MG PO (15:23)
[2020-06-27] MEDS ORDERED: PULMICORT0.5 MG/21 UPD (15:25)
[2020-06-27] MEDS ORDERED: ZOFRAN4 MG PO (15:25)
[2020-06-27] MEDS ORDERED: MYLANTA / MAALO30 ML PO (15:26)
[2020-06-27] MEDS ORDERED: Senokot TAB PO (15:26)
[2020-06-27] MEDS ORDERED: MILK OF MAGNESI30 ML PO (15:26)
[2020-06-27] MEDS ORDERED: DULCOLAX5 MG PO (15:26)
[2020-06-27] MEDS ORDERED: LEVOTHYROXINE75 MCG PO (15:27)
[2020-06-27] MEDS ORDERED: MIRALAX17 GM PO (15:27)
[2020-06-27] MEDS ORDERED: MEGACE40 MG PO (15:28)
[2020-06-27] MEDS ORDERED: GLIPIZIDE10 MG PO (15:28)
[2020-06-27] MEDS ORDERED: HUMALOG 30100 UNITS/ SC (15:28)
[2020-06-27] MEDS ORDERED: NYSTATIN1 PWD TOPICAL (15:29)
[2020-06-27] MEDS ORDERED: LIDODERM 5 %1 PATCH TRANSDERM (15:29)
[2020-06-27] MEDS ORDERED: VITAMIN D325 MC1 PO (15:30)
[2020-06-27] MEDS ORDERED: VITAMIN C PO (15:30)
[2020-06-27] MEDS ORDERED: MELATONIN 3 MG1 TAB PO (15:31)
[2020-06-27] MEDS ORDERED: REMOVE PATCH TD (15:31)
--- NOTE | 2020-06-27 20:02 | NUR ---
RECEIVED IN DAYROOM. SITTING IN A WHEELCHAIR WITH PEERS AT HER SIDE. SOCAIL AT TIMES. CALM AND COOPERATIVE WITH CARE AND ASSESSMENT. NO SIGNS OF HALLUCINATIONS OR PARANOIA. STANDS WITHOUT ASSIST. POEY ALARM SOUNDING. REDIRECT AND REORIENT NEEDED. SITTING IN HALLWAY OUTSIDE OF NURSES STATION AT THIS TIME. CONTINUE PLAN OF CARE.
[2020-06-27 20:20] VITALS: BP 126/68
[2020-06-28 08:00] VITALS: BP 139/69
[2020-06-28 08:40] LABS: ANION GAP 10.1 mmol/L (8-16); CALCIUM 9.3 mg/dL (8.5-10.1); CARBON DIOXIDE 27.1 mmol/L (21.0-32.0); CREATININE - SERUM 1.9 mg/dL (0.6-1.3); VALPROIC ACID (DEPAKOTE) 82.1 ug/mL (50.0-100.0)
[2020-06-28 08:42] LABS: POTASSIUM - SERUM 6.2 mmol/L (3.5-5.1)
--- NOTE | 2020-06-28 10:45 | NUR ---
CRITICAL K 6.2 CALLED BY CLARISSA FROM LAB. DR REYES NOTIFIED. ORDER FOR LAB TO REDRAW AND REPEAT K LEVEL. REPEATED K IS 5.9. ORDER TO GIVE ONE DOSE OF KAYEXELATE 15 GRAMS RECEIVED.
--- NOTE | 2020-06-28 16:58 | NUR ---
ORIENTED X 3.COMPLIANT WITH MEDS AND STAFF.IS DEMANDING AND INTRUSIVE.PROPELLS SELF IN WHEELCHAIR.INCONTINENT OF URINE.WILL CONTINUE WITH CURRENT PLAN OF CARE,MONITOR FOR CHANGES AND SAFETY.
[2020-06-28 20:00] VITALS: BP 131/74
--- NOTE | 2020-06-29 04:19 | NUR ---
B)RECEIVED PATIENT SITTING OUTSIDE THE NURSE'S STATION ASKING IF SHE CAN PUT ON A CLEAN GOWN. ORIENTED TO SELF, TIME AND PLACE. CHILDLIKE AND HELPLESS. FREQUENT REQUEST. ASK FOR THINGS TO EAT THAT SHE IS NOT ALLOWED DUE TO BEING A DIABETIC. WILL GO TO HER SINK AND GET WATER ALTHOUGH SHE IS ORDERED TO HAVE THICKENED LIQUIDS. INTRUSSIVE AT TIMES. I)ADMINISTER MEDS AND MONITOR COMPLIANCE. REDIRECT FOR DRINKING FREE WATER WITHOUT THICKENER. R)MED COMPLIANT. PT RELATED "REALLY" WHEN INFORMED SHE IS NOT TO DRINK LIQUIDS WITHOUT THICKENER. P)CONTINUE POC AND PROVIDE SAFE ENVIRONMENT.
[2020-06-29 08:02] VITALS: BP 109/60
--- NOTE | 2020-06-29 13:45 | NUR ---
PATIENT DISCHARGED TO THE [facility]. DISCHARGE PAPERWORK FAXED AND HARD COPY SENT WITH PATIENT. PERSONAL BELONGINGS SENT WITH PATIENT. REPORT CALLED TO JOSEPHINE CARMONA. PATIENT TRANSPORTED VIA [facility].
--- NOTE | 2020-06-30 15:22 | PN ---
PATIENT:TIMOTHY ROCKWELL MEDICAL RECORD: [id number] LOCATION:[facility] ADMISSION DATE: 05/25/20 PROGRESS NOTE DATE OF SERVICE: 06/28/2020 SUBJECTIVE: The patient's case was discussed with staff. She has no new complaint. OBJECTIVE: The patient was scheduled for discharge today; however, she has an elevated calcium and the discharge will be put off another day while that is being addressed. Behaviorally, she is much better and ready for discharge. TRANSINT:[id number] Voice Confirmation ID: [id number] DOCUMENT ID: [id number] ARMIN SANTIAGO MD at 1522 CC: [id number] DICTATION DATE: 06/28/20 1518 [place] MECHANIC: 06/30/20 0047 DIS IN 06/29/20 [facility] [address] [place] [address]
== END 2020-06-29 13:45 | DRG 885 ==
LOC: D.PSYCH 09:50
PROVIDERS: Family Medicine; ADMIT Psychiatry & Neurology Psychiatry; ATTEND Psychiatry & Neurology Psychiatry
DX: F31.63 Bipolar disorder, current episode mixed, severe, without psychotic features (principal); N18.4 Chronic kidney disease, stage 4 (severe); Z20.822 Contact with and (suspected) exposure to COVID-19; J44.9 Chronic obstructive pulmonary disease, unspecified; D64.9 Anemia, unspecified; D50.8 Other iron deficiency anemias; E55.9 Vitamin D deficiency, unspecified; K21.9 Gastro-esophageal reflux disease without esophagitis; E78.5 Hyperlipidemia, unspecified; K59.00 Constipation, unspecified; E03.9 Hypothyroidism, unspecified; F17.200 Nicotine dependence, unspecified, uncomplicated; B37.9 Candidiasis, unspecified; I12.9 Hypertensive chronic kidney disease with stage 1 through stage 4 chronic kidney disease, or unspecified chronic kidney disease; E11.22 Type 2 diabetes mellitus with diabetic chronic kidney disease; M54.5 Low back pain; M62.81 Muscle weakness (generalized)